=== PATIENT | female | born 1935 | race Caucasian/White ===

== ENCOUNTER 2017-04-08 15:06 | Emergency (ER) | payer MEDICARE, OTHER, SELFPAY | END 2017-04-08 20:42 | disposition home or self-care (01) | PROVIDERS: Emergency Provider Emergency Medicine; Family Provider Nurse Practitioner Family; Visit Provider Emergency Medicine | DX: R07.81 Pleurodynia (principal); R06.02 Shortness of breath; I10 Essential (primary) hypertension; Z79.899 Other long term (current) drug therapy; Z82.49 Family history of ischemic heart disease and other diseases of the circulatory system | CPT/HCPCS: 36415; 71101; 80053; 82550; 82553; 83880; 84436; 84443; 84479; 84484; 85025; 85378; 93005; 96374; 99284 ==

== ENCOUNTER 2017-04-13 07:34 | Emergency (ER) | payer MEDICARE, OTHER, SELFPAY | END 2017-04-13 11:17 | disposition home or self-care (01) | PROVIDERS: Emergency Provider Emergency Medicine; Visit Provider Emergency Medicine | DX: M48.54XA Collapsed vertebra, not elsewhere classified, thoracic region, initial encounter for fracture (principal); Z79.899 Other long term (current) drug therapy; Z82.49 Family history of ischemic heart disease and other diseases of the circulatory system | CPT/HCPCS: 71020; 72128; 78582; 80053; 83605; 83880; 84484; 85025; 85378; 87040; 93005; 96374; 99284; A9540; A9567 ==

== ENCOUNTER → 2017-04-13 | Outpatient (CLI) | payer MEDICARE, OTHER, SELFPAY | PROVIDERS: PCP Nurse Practitioner Family; Visit Provider Emergency Medicine | DX: M48.54XA Collapsed vertebra, not elsewhere classified, thoracic region, initial encounter for fracture (principal) | CPT/HCPCS: 78582; A9540; A9567 ==

== ENCOUNTER → 2017-09-03 11:19 | Outpatient (CLI) | payer MEDICARE, OTHER, SELFPAY ==
--- NOTE | 2017-09-03 11:26 | XR_ITS ---
XR chest 2V HISTORY: ITS.REASON: COUGH ORDERING PHYSICIAN: Mery Curiel PATIENT AGE: 82 years COMPARISON: 04/13/2017 FINDINGS: Prior median sternotomy. Bipolar pacemaker is present from left subclavian approach. There is cardiomegaly without failure. There is been interval development of a small left pleural effusion. Right lung is clear. Severe wedge compression changes involve T8 appear somewhat worse on today's exam. Atelectatic or fibrotic changes are present in the left perihilar region obscured somewhat by the overlying pacemaker. IMPRESSION: 1. Interval development of a small left pleural effusion with left midlung atelectatic change. This is somewhat obscured by the overlying pacemaker. Cannot exclude a central obstructing lesion. CT with contrast may be of further value. 2. Cardiomegaly without failure. 3. Increasing wedge compression changes of T8
== END ==
PROVIDERS: PCP Nurse Practitioner Family; Visit Provider Nurse Practitioner Family
DX: R05 Cough (principal)
CPT/HCPCS: 71046

== ENCOUNTER → 2017-09-25 09:56 | Outpatient (CLI) | payer MEDICARE, OTHER, SELFPAY ==
--- NOTE | 2017-09-25 11:06 | CT_ITS ---
CT chest wo con HISTORY: ITS.REASON: ABNORMAL FINDINGS, PLEURAL FLUID ORDERING PHYSICIAN: Mery Curiel PATIENT AGE: 82 years COMPARISON: 10/19/2014 Technique: Axial images obtained. Sagittal and coronal reformatted images are also generated and reviewed. All CT scans at the facility use one or more dose reduction, viz: automated exposure control; ma/kV adjustment per patient size (including targeted exams where dose is matched to indication; i.e. head); or iterative reconstruction technique. FINDINGS: The right lobe of thyroid gland is enlarged with heterogeneous density with possible thyroid mass may be better evaluated with ultrasound.. There is cardiomegaly. There has been prior median sternotomy/CABG. Cardiac pacemaker device is present. Scattered small nodes present in the mediastinum.. There are some scattered fibrotic changes with a linear transverse area of increased density in the left upper lobe inferiorly consistent with an area of fibrosis similar to the previous exam. Atelectatic/fibrotic changes are present in the left lung base. There is a small left pleural effusion. No lobar consolidation or collapse. No suspicious pulmonary nodules evident. No central obstructing lesions. There is mild distention of the esophagus which is nonspecific. There is severe wedging involving the T8 vertebral body which has developed since the previous CT scan but was present on previous lateral chest radiograph of 04/13/2017. IMPRESSION: 1. Prior CABG with cardiomegaly and small left pleural effusion. 2. Mild left basilar atelectasis or fibrosis. 3. Enlarged lower pole of the right lobe of the thyroid gland with possible thyroid mass. Ultrasound may be of further value.
--- NOTE | 2017-09-25 11:09 | HMH.ITSHM ---
FUROSEMIDE CLOPIDOGREL POTASSIUM METOLAZONE ROPINIROLE
== END ==
PROVIDERS: Family Provider Nurse Practitioner Family; PCP Nurse Practitioner Family; Visit Provider Nurse Practitioner Family
DX: R84 Abnormal findings in specimens from respiratory organs and thorax (principal)
CPT/HCPCS: 71250

== ENCOUNTER 2019-09-26 23:24 | Emergency (ER) | payer MEDICARE, OTHER, SELFPAY ==
[2019-09-26 23:38] VITALS: BP 124/78; PULSE 96; RESP 18; TEMP 36.6; O2SAT 97; BMI 31.2
--- NOTE | 2019-09-26 23:45 | ECG_ITS ---
APPROVED REPORT Exam: Resting ECG HR:93 bpm ECG Measurements Heart Rate 93 AXES PA 272 P 73 QRSd 138 QRS -44 QT 412 T -51 QTc 512 <Conclusion> Sinus rhythm with sinus arrhythmia with 1st degree AV block Left axis deviation Right bundle branch block Inferior infarct, age undetermined Anterolateral infarct, age undetermined Abnormal ECG Electronically signed by : Zia Jimenez, 10/01/2019 17:12:49
--- NOTE | 2019-09-26 23:52 | HMH.EDGENADL ---
ED Disposition Clinical Impression: Hypokalemia Rib contusion Qualifiers: Encounter type: initial encounter Laterality: right Qualified Code(s): S20.211A - Contusion of right front wall of thorax, initial encounter Fall Qualifiers: Encounter type: initial encounter Qualified Code(s): W19.XXXA - Unspecified fall, initial encounter Disposition: Home, Self-Care Condition on Discharge: Good Instructions: DI for Hypokalemia, DI for Rib Contusion, How to Prevent Falls Additional Instructions: Increase your dose of potassium to 3 tablets twice a day until further instructed by your primary care provider. Follow-up with your primary care provider this coming week. You will need to have your potassium level rechecked and will need to review your kidney test results with your primary care provider. Your creatinine and BUN today were 2.9 and 59. Your potassium level was 2.8. Referrals: Mery Curiel APRN [Primary Care Provider] - - Critical Care Critical Care Time: No Attestation: On 09/26/19, the high probability of a clinically significant, sudden or life threatening deterioration of the following system(s) required my full and direct attention, intervention and personal management. The time I documented below is in addition to time spent performing reported procedures but includes the following listed in this critical care notation. Medical Decision Making - Miki Inquiry Pt receiving controlled substance: No Vital Signs: 09/26/19 23:38 09/27/19 01:13 09/27/19 02:29 Temperature 97.9 F 97.9 F Temperature Source Oral Oral Pulse Rate 100 H Pulse Rate [Right] 96 H Respiratory Rate 18 16 Blood Pressure 126/76 Blood Pressure [Right Arm] 124/78 133/82 Blood Pressure Mean [Right Arm] 93 99 Blood Pressure Source [Right Arm] Automatic Cuff Automatic Cuff Blood Pressure Position [Right Arm] Supine Supine 02 Sat by Pulse Oximetry 97 Oxygen Delivery Method Room Air Room Air - Lab Data Lab Results 09/27/19 00:05: Sodium 129 L, Potassium 2.8 L*, Chloride 78 L, Carbon Dioxide 39 H, Anion Gap 14.8, BUN 59 H, Creatinine 2.90 H, Estimated Creat Clear 16, Estimated GFR 15 L*, Est GFR ( Amer) 19 L*, Glucose 207 H, Calcium 10.9 H, Troponin I 0.06 H 09/27/19 00:05: Magnesium 2.5 H Result diagrams: 09/27/19 00:05 Orders (Tests/Meds): ED MEDICATIONS Discontinued Medications Generic Name Dose Route Start Last Admin Trade Name Alistair PRN Reason Stop Dose Admin Potassium Chloride 60 meq 09/27/19 00:39 09/27/19 01:05 Klor-Con 20meq Tablet PO 09/27/19 00:40 60 meq ONCE ONE Administration ORDERS Category Date Time Status XR chest 2V Stat Exams 09/27/19 00:01 Taken XR ribs RT 2V Stat Exams 09/27/19 00:01 Taken - Radiology Data #1 Image(s): Chest (and ribs) Image Reviewed: Yes I reviewed the patient's radiology image Pacemaker. Atelectasis. No acute disease. No pneumothorax or hemothorax. No rib fractures seen. - ECG Data Tracing #1 EKG interpreted by Cong Crump MD: Rhythm: sinus Rate: 93 [place]: Left Ectopy: none Conduction: Right bundle branch block ST Segment Changes: none T Wave Changes: none Q Waves: none No evidence of acute ischemia or injury Prior electrocardiagrams reviewed. No change from prior tracings. Medical Decision Narrative: Discussed lab results. Discussed potassium dosing. The patient says that she is taking the potassium 10 mEq, 2 pills twice a day as prescribed. Daughter is not certain of this. Neither of them know what her normal creatinine is. Her creatinine is elevated compared to the last result here, but that was 2 years ago. She says they have told her that her kidneys are bad, but they do not know her creatinine level. She will need to follow-up with her primary care doctor to have potassium rechecked and review kidney labs. She says she feels good and does not want to be admitted, says she feels good to
--- NOTE | 2019-09-27 00:01 | XR_ITS ---
PROCEDURE: XR RIBS RT 2V CLINICAL INDICATION: fall Posttraumatic pain, right-sided lower rib pain COMPARISON: XR CHEST 2V from 09/27/2019 FINDINGS: Study is somewhat limited technically. No definite fracture. If pain persists, consider CT for further evaluation. IMPRESSION: No acute findings. Dictated by: Florencio Yeager MD 09/27/2019 06:22 Electronically signed by Florencio Yeager MD in [place] 09/27/2019 06:22
--- NOTE | 2019-09-27 00:01 | XR_ITS ---
PROCEDURE: XR CHEST 2V CLINICAL HISTORY: fall Posttraumatic pain COMPARISON: CXR CHEST(2 VIEWS-NOT PORTABLE) from 03/10/2016 CXR CHEST(2 VIEWS-NOT PORTABLE) from 04/13/2017 CXR2V XR chest 2V from 09/03/[address] chest wo con from 09/25/2017 FINDINGS: There is cardiomegaly without failure. Bipolar pacemaker is present from left subclavian approach. There has been a prior CABG The lungs are clear without infiltrates, suspicious nodules, or pleural effusions. There is severe wedging of T8 not significantly changed. Atelectatic changes are present in the left midlung. IMPRESSION: Cardiomegaly, no change with no acute finding Dictated by: Florencio Yeager MD 09/27/2019 06:24 Electronically signed by Florencio Yeager MD in [facility] 09/27/2019 06:24
[2019-09-27 00:22] LABS: Anion Gap 14.8 mEq/L (5-15); Blood Urea Nitrogen 59 mg/dl (7-17); Calcium 10.9 mg/dl (8.4-10.2); Carbon Dioxide 39 mmol/L (22.0-30.0); Creatinine Clearance Estimated 16 mL/min (50-200); Estimated Glomerular Filt Rate 15 ml/min (>60); GFR (African American) 19 ML/MIN (>60); Glucose 207 mg/dl (74-100); Sodium 129 mmol/L (136-145)
[2019-09-27 00:23] LABS: Chloride 78 mmol/L (98-107); Potassium 2.8 mmoL/L (3.5-5.1)
--- NOTE | 2019-09-27 00:24 | PC.NURSE ---
critical K+ called from lab, Dr Crump notified
[2019-09-27 00:34] LABS: Troponin I 0.06 ng/ml (0.00-0.034)
[2019-09-27 00:35] LABS: Magnesium 2.5 mg/dl (1.6-2.3)
--- NOTE | 2019-09-27 01:11 | PC.NURSE ---
Pt spit the last Potassium pill up and was dicarded down the sink, another pill was pulled from the [facility] and pt was able to get that one down. Pt got a full 60 MEQ of potassium down.
[2019-09-27 01:13] VITALS: BP 133/82
[2019-09-27 02:29] VITALS: BP 126/76; PULSE 100; RESP 16; TEMP 36.6; O2SAT 96
== END 2019-09-27 02:32 | disposition home or self-care (01) ==
PROVIDERS: Emergency Provider Emergency Medicine; PCP Nurse Practitioner Family
DX: S20.211A Contusion of right front wall of thorax, initial encounter (principal); W01.0XXA Fall on same level from slipping, tripping and stumbling without subsequent striking against object, initial encounter; Y92.019 Unspecified place in single-family (private) house as the place of occurrence of the external cause; E87.6 Hypokalemia; Z95.0 Presence of cardiac pacemaker; Z79.899 Other long term (current) drug therapy
CPT/HCPCS: 71046; 71100; 80048; 83735; 84484; 93005; 99283; 99284

== ENCOUNTER 2020-02-05 11:15 | Emergency (ER) | payer MEDICARE, OTHER, SELFPAY ==
[2020-02-05 11:16] VITALS: BP 156/103; PULSE 103; RESP 16; TEMP 36.9; O2SAT 98; BMI 26.7
--- NOTE | 2020-02-05 11:34 | CT_ITS ---
PROCEDURE: CT THORACIC SPINE WO CON CLINICAL HISTORY: pain Back pain, pain after bending COMPARISON: CT TSPWO CT THORACIC SPINE W/O CONTRAST from 04/13/[address] chest wo con from 09/25/2017 CR XR CHEST 2V from 09/27/2019 TECHNIQUE: Axial images obtained with sagittal and coronal reformats. All CT scans at the facility use one or more dose reduction, viz: automated exposure control, ma/kV adjustment per patient size (including targeted exams where dose is matched to indication, i.e. head), or iterative reconstruction technique. FINDINGS: There is severe wedge compression changes of T8 with vertebra plana. This was present on 09/27/2019. Moderate wedge compression changes involve the T7 vertebral body with loss of height centrally and anteriorly of at least 50 percent. This also was present on the previous exam and may be slightly worse. There is diffuse osteopenia. There is old cyst left 7th 8th and 9th rib fractures posteriorly. The atelectatic changes are present in the left lower lobe. There is severe coronary artery calcification. The right lobe of the thyroid gland is enlarged with small nodules which are less than 1 cm. At least 3 nodules are present. There is mild retropulsion of the posterior inferior aspect of the T8 vertebral body by 3 mm. There is degenerative disc disease at L1-L2. Degenerative disc disease is also present in the lower cervical spine. IMPRESSION: 1. 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 2. Moderate wedge compression changes of T7 with loss of height of 50 percent anteriorly which is slightly progressed compared to prior lateral radiograph of 09/27/2019. No retropulsion. 3. Diffuse osteopenia Dictated by: Florencio Yeager MD 02/05/2020 12:51 Florencio Yeager MD in [facility] 02/05/2020 12:51
--- NOTE | 2020-02-05 11:38 | HMH.EDGENADL ---
ED Disposition Clinical Impression: Strain of thoracic spine, Osteopenia of spine Disposition: Home, Self-Care Condition on Discharge: Good Instructions: DI for Thoracic Back Pain Prescriptions: Hydrocodone/Acetaminophen [[place] 5-325 Tablet] 1 each PO Q8 #12 tab Prescription Printed Referrals: Armida Montilla APRN [Primary Care Provider] - - Critical Care Critical Care Time: No Attestation: On , the high probability of a clinically significant, sudden or life threatening deterioration of the following system(s) required my full and direct attention, intervention and personal management. The time I documented below is in addition to time spent performing reported procedures but includes the following listed in this critical care notation. Medical Decision Making - Medical Records Medical records reviewed: Yes: I reviewed the patient's medical records. - Miki Inquiry Pt receiving controlled substance: Yes Miki was queried for this patient: No Reason not queried -: Emergent pt cond-no time Risks and benefits of using a controlled substance: were discussed with pt by me Vital Signs: 02/05/20 11:16 02/05/20 12:06 Temperature 98.4 F Temperature Source Oral Pulse Rate [Radial] 103 H 89 Respiratory Rate 16 Blood Pressure [Right Arm] 156/103 H 108/75 L Blood Pressure Mean [Right Arm] 120 86 Blood Pressure Source [Right Arm] Automatic Cuff Blood Pressure Position [Right Arm] Sitting Sitting 02 Sat by Pulse Oximetry 98 100 Oxygen Delivery Method Room Air Room Air Orders (Tests/Meds): ED MEDICATIONS Discontinued Medications Generic Name Dose Route Start Last Admin Trade Name Freq PRN Reason Stop Dose Admin Morphine Sulfate 4 mg 02/05/20 11:34 02/05/20 11:47 Morphine 2mg/Ml Syringe IM 02/05/20 11:35 4 mg ONCE ONE Administration Ondansetron HCl 4 mg 02/05/20 11:34 02/05/20 11:45 Ondansetron 4mg Odt SL 02/05/20 11:35 Not Given ONCE ONE Ondansetron HCl 4 mg 02/05/20 11:47 02/05/20 11:48 Ondansetron 4mg/2ml Vial IV 02/05/20 11:48 4 mg ONCE ONE Administration - CT Data CT Scan: T-Spine Time Received: 13:17 Findings Narrative: 1. 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 2. Moderate wedge compression changes of T7 with loss of height of 50 percent anteriorly which is slightly progressed compared to prior lateral radiograph of 09/27/2019. No retropulsion. 3. Diffuse osteopenia - Reevaluation(s) Time: 13:18 Reevaluation #1: On reevaluation, patient is feeling better. She does have evidence of significant chronic compression fractures. She does have some loss of height. There is no obvious compression or new deformities. Patient has no neuro deficit. Repeat exam is normal. Patient is ambulatory. Patient needs follow-up with PCP. Strict return precautions. Verbalized understanding. Medical Decision Narrative: 84-year-old female presented to the emergency department with upper back pain. Patient did not have any direct trauma. However does have a history of compression fracture. CT will be obtained. Analgesics provided. General Adult HPI - General Chief complaint: PAIN Stated complaint: back pain no ao Time Seen by Provider: 02/05/20 11:20 Mode of Arrival: Ambulatory Limitations: No Limitations Description of Symptoms (Recalled from ER Triage Doc. by RN): TO ED PER [employer] CAR WITH C/O RT SIDE BACK PAIN PT STATES PAIN STARTED LAST SUNDAY WHILE BENDING OVER TO CLEAN THE OVEN. - History of Present Illness HPI narrative: This is a 84-year-old female presented to the emergency department with upper back discomfort. Patient states that 1 week ago she was reaching over her stove to try and clean it where she felt some pain in her back. It is located in her mid upper back. She has had pain like this before and she states that it was compression fracture. T
[2020-02-05 12:06] VITALS: BP 108/75; PULSE 89; O2SAT 100
[2020-02-05 13:33] VITALS: BP 124/87; PULSE 90; RESP 17; TEMP 36.7; O2SAT 99
== END 2020-02-05 13:34 | disposition home or self-care (01) ==
PROVIDERS: Emergency Provider Emergency Medicine; PCP Nurse Practitioner
DX: M54.6 Pain in thoracic spine (principal); M85.89 Other specified disorders of bone density and structure, multiple sites; I10 Essential (primary) hypertension; Z95.0 Presence of cardiac pacemaker; Z79.899 Other long term (current) drug therapy
CPT/HCPCS: 72128; 96374; 96375; 99282; J2405

== ENCOUNTER 2020-03-08 09:59 | Emergency (ER) | payer MEDICARE, OTHER, SELFPAY ==
[2020-03-08 10:10] VITALS: BP 150/76; PULSE 103; RESP 17; TEMP 36.9; O2SAT 100; BMI 27.1
--- NOTE | 2020-03-08 10:20 | CT_ITS ---
PROCEDURE: CT THORACIC SPINE WO CON CLINICAL HISTORY: pain Mid lower back pain for 2 weeks COMPARISON: CT CT THORACIC SPINE WO CON from 02/05/2020 TECHNIQUE: Axial images obtained with sagittal and coronal reformats. All CT scans at the facility use one or more dose reduction, viz: automated exposure control, ma/kV adjustment per patient size (including targeted exams where dose is matched to indication, i.e. head), or iterative reconstruction technique. FINDINGS: There are marked compression fractures once again noted involving T7 and T8 vertebral bodies with vertebra plana at T8. There is at least 50 percent anterior wedge compression changes of T7. No retropulsion is evident. There are mild to moderate compression changes of T9 which have developed in the interval there is increased soft tissue density about T9 consistent with some underlying hemorrhage. No retropulsion is evident. No change mild compression changes of T12 there is diffuse osteopenia with mild multilevel thoracic spondylosis. There is diffuse coronary artery calcification. Cardiac pacemaker device is present. IMPRESSION: Moderate compression of T9 vertebral body slightly increased compared to the previous exam with some paraspinal hemorrhage noted No change marked compression fractures of T7 and T8 and mild compression change of T12 Dictated by: Florencio Yeager MD 03/08/2020 12:31 Florencio Yeager MD in [facility] 03/08/2020 12:31
--- NOTE | 2020-03-08 10:20 | CT_ITS ---
PROCEDURE: CT LUMBAR SPINE WO CON CLINICAL HISTORY: pain Low back pain COMPARISON: No exams were available for comparison TECHNIQUE: Axial images obtained with sagittal and coronal reformats. All CT scans at the facility use one or more dose reduction, viz: automated exposure control, ma/kV adjustment per patient size (including targeted exams where dose is matched to indication, i.e. head), or iterative reconstruction technique. FINDINGS: No acute lumbar fracture or dislocation. L1-L2: Degenerative disc disease with bulging disc and endplate irregularity. L2-L3: Mild degenerative disc disease with mild bulging disc. L3-L4: Unremarkable. L4-5: Mild bulging disc. L5-S1: Degenerative disc disease with mild bulging disc/endplate hypertrophic change with mild left-sided foraminal narrowing. There is generalized osteopenia. There is a small hiatal hernia IMPRESSION: Mild multilevel lumbar spondylosis. Please see above for detailed description at each level No acute fracture or dislocation Dictated by: Florencio Yeager MD 03/08/2020 12:34 Florencio Yeager MD in [facility] 03/08/2020 12:34
--- NOTE | 2020-03-08 10:27 | HMH.EDBACK ---
ED Disposition Clinical Impression: Thoracic compression fracture Qualifiers: Encounter type: initial encounter Thoracic vertebra fracture level: T9 Qualified Code(s): S22.070A - Wedge compression fracture of T9-T10 vertebra, initial encounter for closed fracture Disposition: Home, Self-Care Condition on Discharge: Good Instructions: DI for Low Back Pain Prescriptions: Hydrocodone/Acetaminophen [[place] 7.5-325 Tablet] 1 tab PO TID PRN #10 tab PRN Reason: Moderate Pain Prescription Printed Referrals: Zia Jimenez MD [Primary Care Provider] - Bari Pittman [Referring] - - Critical Care Critical Care Time: No Attestation: On 03/08/20, the high probability of a clinically significant, sudden or life threatening deterioration of the following system(s) required my full and direct attention, intervention and personal management. The time I documented below is in addition to time spent performing reported procedures but includes the following listed in this critical care notation. Medical Decision Making - Medical Records Medical records reviewed: Yes: I reviewed the patient's medical records. - Miki Inquiry Pt receiving controlled substance: Yes Miki was queried for this patient: No Reason not queried -: Emergent pt cond-no time Risks and benefits of using a controlled substance: were discussed with pt by me Vital Signs: 03/08/20 10:10 03/08/20 10:59 Temperature 98.5 F Temperature Source Oral Pulse Rate [Right Radial] 103 H 89 Respiratory Rate 17 20 Blood Pressure [Right Arm] 150/76 H 139/85 Blood Pressure Mean [Right Arm] 100 103 Blood Pressure Source [Right Arm] Automatic Cuff Blood Pressure Position [Right Arm] Sitting 02 Sat by Pulse Oximetry 100 98 Oxygen Delivery Method Room Air Room Air Orders (Tests/Meds): ED MEDICATIONS Discontinued Medications Generic Name Dose Route Start Last Admin Trade Name Freq PRN Reason Stop Dose Admin Hydrocodone Bitart/Acetaminophen 1 tab 03/08/20 10:19 03/08/20 10:28 Hydrocodone 10mg/Apap 325mg Tab PO 03/08/20 10:20 1 tab ONCE ONE Administration ORDERS Category Date Time Status CT lumbar spine wo con Stat Cat Scan 03/08/20 10:[address] thoracic spine wo con Stat Cat Scan 03/08/20 10:20 Taken - CT Data CT Scan: T-Spine, L-Spine Time Received: 11:[address] Reviewed: Yes: I have reviewed the patient's CT results Findings Narrative: 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 Thoracic spine shows moderate compression T9 vertebral body fracture he with somewhat increasing compression. Large compression of T7, T8 vertebral bodies without significant change from previous examination. Mild compression of T12 vertebral body. - Reevaluation(s) Time: 11:28 Reevaluation #1: On reevaluation, patient is feeling better. She does have redemonstrated thoracic compression fractures. I did explain to the patient that she needs to follow-up with neurosurgery. The patient and family member are reluctant as they said the patient cannot tolerate any surgery. I did explain to them that they can still facilitate with physical therapy and other nonsurgical treatments. I will be prescribing the patient for a custom TLSO back brace that they will need to get fitted for. Patient will be provided analgesics. Given strict return precautions. Verbalized understanding. Medical Decision Narrative: 84-year-old female presented to the emergency department with chronic thoracic compression fractures. Patient has not followed up with neurosurgery since last evaluation. Repeat imaging will be obtained. Back Pain HPI - General Chief Complaint: Back Pain/Injury Stated Complaint: back pain Time Seen by Provider: 03/08/20 10:20 Mode of Arrival: Wheelchair Limitations: No Limitations Description of Symptoms (Recalled from ER Triage Doc. by RN): pt presents to ed with c/o back pain that began approx 1 mon
[2020-03-08 10:59] VITALS: BP 139/85; PULSE 89; RESP 20; O2SAT 98
[2020-03-08 11:43] VITALS: BP 133/80; PULSE 88; RESP 20; TEMP 36.7; O2SAT 99
== END 2020-03-08 11:44 | disposition home or self-care (01) ==
PROVIDERS: Emergency Provider Emergency Medicine; PCP Internal Medicine Adolescent Medicine
DX: S22.070A Wedge compression fracture of T9-T10 vertebra, initial encounter for closed fracture (principal); S22.060A Wedge compression fracture of T7-T8 vertebra, initial encounter for closed fracture; I25.10 Atherosclerotic heart disease of native coronary artery without angina pectoris; I10 Essential (primary) hypertension; Z95.0 Presence of cardiac pacemaker; Z79.899 Other long term (current) drug therapy
CPT/HCPCS: 72128; 72131; 96372; 99282

== ENCOUNTER → 2020-03-22 14:39 | Outpatient (POV) | payer MEDICARE, OTHER, SELFPAY ==
[2020-03-22 15:06] VITALS: BP 121/67; PULSE 96; RESP 18; TEMP 36.7; O2SAT 98; BMI 26.4
--- NOTE | 2020-03-22 15:51 | HMH.PMCON ---
Assessment and Plan (1) Back pain Status: Chronic Category: Medical Code(s): M54.9 - Dorsalgia, unspecified (2) Thoracic compression fracture Status: Chronic Category: Medical Code(s): S22.000A - Wedge compression fracture of unspecified thoracic vertebra, initial encounter for closed fracture - Assessment and plan all Dx Assessment and Plan for all problems:: Patient has not received her back brace yet I do believe that this would benefit her if she does not receive this in several days she has been instructed to call the office to get a back brace from our office. I discussed kyphoplasty along with epidurals she would like to try bracing prior to making any decision. I will follow-up with her in 2 weeks reassess her symptoms at that time she has been instructed to call the office if she has any issues prior to her next appointment. Dr. Wakefield has reviewed this note and agrees with this plan of care. This note was dictated using voice recognition software and may contain errors or omissions HPI - Data of Consult Consult date: 03/22/20 Requesting Physician: More Salinas APRN Primary Care Provider: Vicki Grant APRN - Consult Narrative Reason for consult: Back pain History of present illness: Ms. Medellin is a 84 year old female who presents today for consultation regards to her low back pain. Patient has multiple compression fractures of her T-spine. She has had this over the last 3 years. Most recently she had a new fracture appear. She was at the ER and given a prescription for a back brace but has not received it yet she states she has no pain when she is sitting still she rates her pain a 7 out of 10. She does have pain with movement. Patient also is currently on anticoagulation therapy. Patient and I will discuss options in regards to her pain management. CC: More Salinas APRN [facility] History I have reviewed the patient's past medical history: Yes Medical History: Reports:: Coronary Artery Disease, Hypertension, Internal Pacemaker Denies:: Cancer, Diabetes Mellitus Type 1, Diabetes Mellitus Type 2, MRSA *Have you ever received a pneumonia vaccine?: No *Have you received a flu vaccine this season?: No Other Surgeries: Yes: CABG, Cardiac Catheterization, Coronary Stent, Hysterectomy-Total, Pacemaker Amputation: No Fractures: No - *Social History Smoking Status: Never smoker Alcohol Intake: never Substance Use Type: denies use *Occupational Status:: retired Housing: house Household Members: family *Travel in the last 8 weeks: None Family Hx:: Coronary Artery Disease, Heart Attack Review of Systems - Review of Systems ROS General: no recent weight change, no fever, no sleep disturbances Respiratory: no cough, no shortness of air, no recurring pulmonary infections Cardiovascular/Peripheral Vascular: No chest pain, No palpitations, no edema, no shortness of breath. Gastrointestinal: no new onset incontinence, normal bowel movements reported Genitourinary: no new onset incontinence Musculoskeletal: Back pain Psychiatric: normal mood/ affect, Neurological: [denies new onset weakness in extremities], [denies new onset balance issues] Meds Home Medications Medication Instructions Recorded Confirmed Type clopidogrel 75 mg tablet 75 mg PO DAILY tab 01/05/20 03/22/20 History furosemide 40 mg tablet 40 mg PO BID tab 01/05/20 03/22/20 History metolazone 2.5 mg tablet 2.5 mg PO .twice weekly tab 01/05/20 03/22/20 History potassium chloride 10 mEq 20 meq PO BID tab 01/05/20 03/22/20 History tablet,extended release ropinirole 3 mg tablet 3 mg PO QHS tab 01/05/20 03/22/20 History Allergies Allergy/AdvReac Type Severity Reaction Status Date / Time No Known Allergies Allergy Verified 03/22/20 15:06 Objective Vital signs: Temp Pulse Resp BP Pulse Ox 98.1 F 96 H 18 121/67 98 03/22/20 15:06 03/22/20 15:06 03/22/20 15:06 03/22/20 15:06
== END ==
PROVIDERS: PCP Nurse Practitioner Family; Visit Provider Clinical Nurse Specialist Family Health
DX: S22.000A Wedge compression fracture of unspecified thoracic vertebra, initial encounter for closed fracture (principal)
CPT/HCPCS: 99202

== ENCOUNTER → 2021-02-08 10:25 | Outpatient (CLI) | payer MEDICARE, OTHER, SELFPAY | PROVIDERS: PCP Nurse Practitioner Family; Visit Provider Nurse Practitioner Family | DX: R06.02 Shortness of breath (principal) ==

== ENCOUNTER → 2021-02-24 11:23 | Outpatient (CLI) | payer MEDICARE, OTHER, SELFPAY ==
[2021-02-24 12:29] LABS: Alanine Aminotransferase 15 U/L (12-78); Albumin Level 4.4 g/dl (3.5-5.0); Albumin/Globulin Ratio 1.5 (1.1-1.8); Alkaline Phosphatase 83 U/L (38-126); Aspartate Amino Transferase 28 U/L (14-36); Bilirubin,Total 0.8 mg/dl (0.2-1.3); Blood Urea Nitrogen 36 mg/dl (7-17); Calcium 11.1 mg/dl (8.4-10.2); Carbon Dioxide 33 mmol/L (22.0-30.0); Chloride 100 mmol/L (98-107); Estimated Glomerular Filt Rate 33 ml/min (>60); GFR (African American) 40 ML/MIN (>60); Globulin 2.9 g/dL (1.3-3.2); Glucose 115 mg/dl (74-100); Sodium 141 mmol/L (136-145); Total Protein,Serum 7.3 g/dl (6.3-8.2)
[2021-02-24 16:24] LABS: Hemoglobin A1C 6.6 % (4.0-6.0)
== END ==
PROVIDERS: Visit Provider Nurse Practitioner Family
DX: R73.9 Hyperglycemia, unspecified (principal)
CPT/HCPCS: 36415; 80053; 83036

== ENCOUNTER 2021-06-08 15:48 | Inpatient (IN) | payer MEDICARE, OTHER, SELFPAY ==
[2021-06-08] VITALS (9 sets, daily range): BP systolic 112–178; BP diastolic 75–125; PULSE 95–128; RESP 12–36; TEMP 36.9; O2SAT 73–98; BMI 26.2; BMI 26.7
--- NOTE | 2021-06-08 16:10 | XR_ITS ---
PROCEDURE INFORMATION: Exam: XR Chest Exam date and time: 06/08/2021 4:10 PM Age: 86 years old Clinical indication: Shortness of breath; Additional info: Pna TECHNIQUE: Imaging protocol: XR of the chest. Views: 1 view. Total images: 1 COMPARISON: CT ANGIO CHEST PE PROTOCOL 06/08/2021 5:03 PM FINDINGS: Lungs: Low lung volumes. Moderate central vascular congestion. Multifocal bilateral perihilar and basilar alveolar opacities consistent with multifocal pneumonia versus edema. Pleural spaces: Small to moderate left basilar pleural effusion. The small right basilar pleural effusion seen on CT is not well seen radiographically. No pneumothorax. Heart/Mediastinum: Severe cardiomegaly. Prior median sternotomy.Cardiac pacemaker without gross hardware complication or change. No tracheal/mediastinal shift. Bones/joints: No acute osseous abnormalities are identified. Osteopenia. IMPRESSION: 1. Cardiomegaly and vascular congestive changes suggesting CHF. 2. Multifocal bilateral alveolar opacities consistent with pneumonia or edema. 3. Small to moderate left basilar effusion.
--- NOTE | 2021-06-08 16:16 | CT_ITS ---
PROCEDURE INFORMATION: Exam: CTA Chest With Contrast Exam date and time: 06/08/2021 4:16 PM Age: 86 years old Clinical indication: Shortness of breath; Prior surgery; Additional info: SOB, tachycardia TECHNIQUE: Imaging protocol: Computed tomographic angiography of the chest with contrast. 3D rendering (Not supervised by radiologist): MIP and/or 3D reconstructed images were created by the technologist. Total images: 658 Radiation optimization: All CT scans at this facility use at least one of these dose optimization techniques: automated exposure control; mA and/or kV adjustment per patient size (includes targeted exams where dose is matched to clinical indication); or iterative reconstruction. Contrast material: ISOVUE 370; Contrast volume: 100 ml; Contrast route: INTRAVENOUS (IV); COMPARISON: CHESTWO CT chest wo con 09/25/2017 11:05 AM FINDINGS: Pulmonary arteries: No large central pulmonary emboli were identified. Assessment of the small peripheral subsegmental branches at multiple levels was nondiagnostic due to gross respiratory motion. Aorta: Limited aortic assessment due to its largely nonenhanced state due to very early contrast phase. Moderate aortic ectasia/tortuosity and calcific atherosclerosis. No mediastinal hematoma. Thyroid: 2.4 cm nodule in the posterior right thyroid lobe grossly unchanged from CT 09/25/2017. Nonemergent thyroid ultrasound characterization recommended if not previously performed. Lungs: No acute tracheobronchial abnormalities. Multifocal bilateral peripheral and central alveolar opacities involving all lobes, concerning for multifocal pneumonia or possibly an atypical edema pattern. Commonly reported imaging features of COVID-19 pneumonia are present. Other processes such as influenza pneumonia and organizing pneumonia, as can be seen with drug toxicity and connective tissue disease, can cause a similar imaging pattern. No pulmonary mass lesions are identified. Small to moderate left and small right basilar pleural effusions. Moderate compressive atelectasis in the left lung base. Pleural spaces: No pneumothorax. Heart: No pericardial effusion. Mediastinal space: Fluid content in the esophagus suggests gastroesophageal reflux. The esophagus was otherwise unremarkable. Lymph nodes: No supraclavicular or axillary adenopathy. Enlarged mediastinal nodes in the pretracheal retrocaval and subcarinal distributions with enlarged right hilar nodes. These are nonspecific. Bones/joints: Osteopenia. Severe chronic anterior wedge compression deformity of T8 unchanged. Moderate superior endplate compression of T7 is also unchanged. There is moderate-severe compression deformity of the T9 vertebrae , increased since 03/08/2020 but demonstrates age indeterminate features currently and may be chronic. Moderate superior endplate compression of T12 and mild superior endplate compression of L1 are new since 03/08/2020 but demonstrate chronic features currently. Soft tissues: Mild soft tissue stranding/edema in the peripheral subcutaneous tissues suggesting volume overload or anasarca. Other findings: Severe cardiomegaly.Severe coronary artery calcification. Prior median sternotomy.Cardiac pacemaker without gross hardware complication or change. IMPRESSION: 1. No large central pulmonary emboli were identified. Assessment of the small peripheral subsegmental branches at multiple levels was nondiagnostic due to gross respiratory motion. 2. Multifocal bilateral alveolar opacities concerning for multifocal pneumonia versus atypical edema pattern. 3. Severe cardiomegaly with severe coronary artery calcification, c
--- NOTE | 2021-06-08 16:19 | CT_ITS ---
PROCEDURE INFORMATION: Exam: CT Abdomen And Pelvis With Contrast Exam date and time: 06/08/2021 4:19 PM Age: 86 years old Clinical indication: Abdominal pain; Generalized TECHNIQUE: Imaging protocol: Computed tomography of the abdomen and pelvis with contrast. Total images: 708 Radiation optimization: All CT scans at this facility use at least one of these dose optimization techniques: automated exposure control; mA and/or kV adjustment per patient size (includes targeted exams where dose is matched to clinical indication); or iterative reconstruction. Contrast material: ISOVUE; Contrast volume: 100 ml; Contrast route: IV; COMPARISON: CT THORACIC SPINE WO CON 03/08/2020 10:39 AM FINDINGS: Lungs: Multifocal alveolar opacities in the lung bases bilaterally concerning for multifocal pneumonia possibly an atypical edema pattern. Small to moderate left and small right basilar pleural effusions, with compressive atelectasis in the posterior left lower lobe. Heart: Severe cardiomegaly. Prior median sternotomy.Severe coronary artery calcification.Cardiac pacemaker without gross hardware complication or change. Mediastinal space: Partial fluid distension of the distal esophagus suggesting gastroesophageal reflux. Liver: Normal contour. No mass lesions. No intrahepatic biliary ductal dilatation. Gallbladder and bile ducts: Suspect small noncalcified stones layering dependently in the gallbladder lumen without gross signs of cholecystitis. Nondilated bile ducts. Pancreas: Normal. No inflammatory changes or ductal dilation. Spleen: Normal. No splenomegaly. Adrenal glands: Normal. No adrenal mass. Kidneys and ureters: No acute abnormalities. No hydronephrosis or hydroureter. No urinary tract stones are identified. Renal assessment limited by motion artifact. Stomach and bowel: The stomach is largely contracted without gross abnormality. The small bowel is nondilated with no gross abnormality. Colonic wall thickening involving the mid and proximal colonic segments suggesting colitis. No evidence of perforation or abscess.Mild diverticulosis involving the distal colon without evidence of acute diverticulitis. Appendix: The appendix is normal in caliber and demonstrates no evidence of appendicitis. Intraperitoneal space: Small volume intraperitoneal free fluid in the pelvis. No free air. Vasculature: Moderate atherosclerotic aortoiliac calcification without aneurysm. Lymph nodes: No adenopathy. Urinary bladder: Unremarkable as visualized. Reproductive: Prior hysterectomy. Bones/joints: Moderate superior endplate compression deformity of T12 and mild superior endplate compression of L1 which are new since 03/08/[address] features currently. Osteopenia. Moderate-severe disc space narrowing L5-S1. Soft tissues: Small fatty umbilical hernia . No evidence of associated bowel herniation or strangulation. IMPRESSION: 1. Colonic wall thickening in the mid and proximal segments suggesting colitis. No evidence of perforation or abscess. 2. Multifocal airspace disease in the lung bases concerning for multifocal pneumonia versus an atypical edema pattern. 3. Small to moderate left and small right basilar pleural effusions. 4. Severe cardiomegaly and severe coronary artery calcification with cardiac pacemaker and prior median sternotomy. 5. Evidence of gastroesophageal reflux. 6. Small gallstones without CT evidence of cholecystitis or biliary obstruction. 7. Small volume intraperitoneal fluid in the pelvis. No free air. 8. Compression fractures of T12 and L1 are new since 03/08/[address] features [email or web address]
--- NOTE | 2021-06-08 16:22 | HMH.EDGENADL ---
ED Disposition Clinical Impression: COVID Disposition: Admitted As Inpatient Condition on Discharge: Serious - Critical Care Critical Care Time: No Attestation: On 06/08/21, the high probability of a clinically significant, sudden or life threatening deterioration of the following system(s) required my full and direct attention, intervention and personal management. The time I documented below is in addition to time spent performing reported procedures but includes the following listed in this critical care notation. Medical Decision Making - Miki Inquiry Pt receiving controlled substance: No Vital Signs: 06/08/21 15:49 06/08/21 16:30 06/08/21 17:01 Temperature 98.5 F Temperature Source Oral Pulse Rate 115 H 101 H Pulse Rate [Left Radial] 128 H Respiratory Rate 28 H 36 H 32 H Blood Pressure 125/84 112/77 Blood Pressure [Right Arm] 149/98 H Blood Pressure Mean 97 88 Blood Pressure Mean [Right Arm] 115 Blood Pressure Source [Right Arm] Automatic Cuff Blood Pressure Position [Right Arm] Sitting 02 Sat by Pulse Oximetry 73 L 94 L 94 L Oxygen Delivery Method Room Air Oxygen Flow Rate (LPM) 5 5 06/08/21 18:01 06/08/21 18:30 06/08/21 19:23 Temperature Temperature Source Pulse Rate 108 H 121 H 117 H Pulse Rate [Left Radial] Respiratory Rate 34 H 36 H Blood Pressure 178/105 H 141/125 H Blood Pressure [Right Arm] Blood Pressure Mean 128 127 Blood Pressure Mean [Right Arm] Blood Pressure Source [Right Arm] Blood Pressure Position [Right Arm] 02 Sat by Pulse Oximetry 95 96 Oxygen Delivery Method Oxygen Flow Rate (LPM) 06/08/21 19:26 06/08/21 20:17 Temperature 98.5 F Temperature Source Pulse Rate 95 H Pulse Rate [Left Radial] Respiratory Rate 28 H Blood Pressure 122/75 Blood Pressure [Right Arm] Blood Pressure Mean Blood Pressure Mean [Right Arm] Blood Pressure Source [Right Arm] Blood Pressure Position [Right Arm] 02 Sat by Pulse Oximetry 98 Oxygen Delivery Method BiPAP BiPAP Oxygen Flow Rate (LPM) - Lab Data Lab Results 06/08/21 16:09: Specimen Source Right brachial, O2 % 5l, ABG pH 7.45, ABG pCO2 30.6 L, ABG pO2 65.1 L, ABG HCO3 20.9 L, ABG Total CO2 21.9 L, ABG O2 Saturation 93, ABG Base Excess -3.0 L, Florencio Test Non applicable 06/08/21 16:20: Lactate 2.9 H 06/08/21 16:20: Chlamy pneumoniae PCR Not detected, Adenovirus (PCR) Not detected, B. pertussis DNA (PCR) Not detected, Coronavirus OC43 (PCR) Not detected, Coronavirus HKU1 (PCR) Not detected, Coronavirus 229E (PCR) Not detected, Coronavirus NL63 (PCR) Not detected, Human Metapneumovir PCR Not detected, Influenza A (H1) PCR Not detected, Influ A (H1N1/09) PCR Not detected, Influenza A (H3) PCR Not detected, Influenza Type A (PCR) Not detected, Influenza Type B (PCR) Not detected, M. pneumoniae (PCR) Not detected, Parainfluenza 1 (PCR) Not detected, Parainfluenza 2 (PCR) Not detected, Parainfluenza 3 (PCR) Not detected, Parainfluenza 4 (PCR) Not detected, RSV (PCR) Not detected, Entero/Rhino (PCR) Not detected 06/08/21 16:20: WBC 3.5 L, RBC 4.63, Hgb 15.0, Hct 47.2 H, MCV 102.0 H, MCH 32.3 H, MCHC 31.7 L, RDW 13.7, Plt Count 134 L, MPV 10.1, Neut % (Auto) 90.1 H, Lymph % (Auto) 5.1 L, [place] % (Auto) 3.9, Eos % (Auto) 0.3, Baso % (Auto) 0.6, Neut # (Auto) 3.1, Lymph # (Auto) 0.2 L, [place] # (Auto) 0.1, Eos # (Auto) 0.0, Baso # (Auto) 0.0, Total Counted 100, Neutrophils % (Manual) 73, Lymphocytes % (Manual) 15, Monocytes % (Manual) 12 H, Platelet Estimate Normal, Hypochromasia 2+, Anisocytosis 1+, Microcytosis 1+ 06/08/21 16:20: Sodium 130 L, Potassium 5.8 H, Chloride 96 L, Carbon Dioxide 22, Anion Gap 17.8 H, BUN 60 H, Creatinine 1.90 H, Estimated Creat Clear 20, Estimated GFR 25 L, Est GFR ( Amer) 30 L, Glucose 268 H, Calcium 9.3, Total Bilirubin 0.6, AST 60 H, ALT 31, Alkaline Phosphatase 88, Troponin I 0.08 H, Total Protein 7.2, Albumin 4.1, Globulin 3.1, Albumin/Globulin Ratio 1.
[2021-06-08 16:28] LABS: Adenovirus,PCR Not Detected (NotDetected); Bordetella Pertussis Not Detected (NotDetected); Chlamydophila Pneumoniae, PCR Not Detected (NotDetected); Coronavirus 229E Not Detected (NotDetected); Coronavirus NL63 Not Detected (NotDetected); Coronavirus OC43 Not Detected (NotDetected); Coronovirus HKU1,PCR Not Detected (NotDetected); Human Metapneumovirus Not Detected (NotDetected); Influenza A, PCR Not Detected (NotDetected); Influenza AH1, 2009 Not Detected (NotDetected); Influenza AH1, PCR Not Detected (NotDetected); Influenza AH3,PCR Not Detected (NotDetected); Influenza B, PCR Not Detected (NotDetected); Mycoplasma Pneumoniae, PCR Not Detected (NotDetected); Parainfluenza 1, PCR Not Detected (NotDetected); Parainfluenza 2, PCR Not Detected (NotDetected); Parainfluenza 3, PCR Not Detected (NotDetected); Parainfluenza 4, PCR Not Detected (NotDetected); Respiratory Syncytial Virus Not Detected (NotDetected); Rhinovirus/Enterovirus Not Detected (NotDetected)
--- NOTE | 2021-06-08 16:30 | ECG_ITS ---
APPROVED REPORT Exam: Resting ECG HR:122 bpm ECG Measurements Heart Rate 122 AXES QRSd 149 QRS -72 QT 338 T 53 QTc 410 Conclusion ATRIAL FIBRILLATION WITH RAPID VENTRICULAR RESPONSE RIGHT BUNDLE BRANCH BLOCK Old inf and anterior change ABNORMAL ECG UNCONFIRMED REPORT Electronically signed by : Zia Jimenez MD 06/08/2021 21:52:46
--- NOTE | 2021-06-08 16:32 | PC.NURSE ---
notified RT of abg order
--- NOTE | 2021-06-08 16:34 | PC.NURSE ---
notified rad of orders on pt, spoke with johnnie
[2021-06-08 16:44] LABS: Alanine Aminotransferase 31 U/L (12-78); Albumin Level 4.1 g/dl (3.5-5.0); Albumin/Globulin Ratio 1.3 (1.1-1.8); Alkaline Phosphatase 88 U/L (38-126); Anion Gap 17.8 mEq/L (5-15); Aspartate Amino Transferase 60 U/L (14-36); Bilirubin,Total 0.6 mg/dl (0.2-1.3); Blood Urea Nitrogen 60 mg/dl (7-17); Calcium 9.3 mg/dl (8.4-10.2); Carbon Dioxide 22 mmol/L (22.0-30.0); Chloride 96 mmol/L (98-107); Creatinine Clearance Estimated 20 mL/min (50-200); Estimated Glomerular Filt Rate 25 ml/min (>60); GFR (African American) 30 ML/MIN (>60); Globulin 3.1 g/dL (1.3-3.2); Glucose 268 mg/dl (74-100); Potassium 5.8 mmoL/L (3.5-5.1); Sodium 130 mmol/L (136-145); Total Protein,Serum 7.2 g/dl (6.3-8.2)
[2021-06-08 16:45] LABS: Basophils % 0.6 % (0.1-2.0); Eosinophils % 0.3 % (0.1-12.0); Hematocrit 47.2 % (37.0-47.0); Lactic Acid 2.9 mmol/L (0.7-2.1); Lymphocytes # 0.2 K/mm3 (0.7-4.5); Lymphocytes % 5.1 % (10-50); Mean Corpuscular HGB Conc 31.7 g/dL (31.8-35.4); Mean Corpuscular Hemoglobin 32.3 pg (27.0-31.2); Mean Platelet Volume 10.1 fl (7.4-10.4); Monocytes # 0.1 K/mm3 (0.1-1.0); Monocytes % 3.9 % (1.7-9.3); Neutrophils # 3.1 K/mm3 (1.8-7.8); Neutrophils % 90.1 % (37.0-80.0); Platelet Count 134 K/mm3 (142-424); Red Blood Count 4.63 M/mm3 (4.20-5.40); Red Cell Distribution Width 13.7 % (11.5-17.5); White Blood Count 3.5 K/mm3 (4.8-10.8)
[2021-06-08 16:53] LABS: MANUAL DIFFERENTIAL MANUAL DIFFERENTIAL (MANUAL DIFF)
[2021-06-08 16:54] LABS: NT Pro Brain Natriuretic Pep. 21700 pg/mL (0-450)
[2021-06-08 16:56] LABS: Troponin I 0.08 ng/ml (0.00-0.034)
[2021-06-08 17:10] LABS: ABG HCO3 20.9 mmhg (22.0-26.0); ABG Oxygen Saturation 93 % (90-100); ABG PCO2 30.6 mmhg (35.0-45.0); ABG PH 7.45 mmol/L (7.35-7.45); ABG PO2 65.1 mmhg (80-100); ABG TCO2 21.9 mmhg (23-27)
[2021-06-08 17:11] LABS: Allen's Test Non Applicable; Source Right Brachial
--- NOTE | 2021-06-08 17:38 | PC.NURSE ---
talked to ER doc about poor patient labs...he decided he still wanted the CT's done even though labs were poor. Had ER doc sign CT contrast form saying it was okay to proceed with CT's.
[2021-06-08 18:01] LABS: Influenza A, PCR Not Detected (NotDetected); Influenza B, PCR Not Detected (NotDetected)
[2021-06-08 18:19] LABS: Lymphocytes % 15 % (10-50); Monocytes % 12 % (2-9); Neutrophils % 73 % (42-76); Total Cells Counted 100
[2021-06-08 18:20] LABS: Anisocytosis 1+; Hypochromasia 2+; Microcytosis 1+; Platelet Estimate Normal
[2021-06-08 18:31] LABS: Coronavirus 19, PCR Detected (NotDetected)
--- NOTE | 2021-06-08 18:50 | PC.NURSE ---
gang bore operator paging dr. shin RT notified of verbal order for bipap per ER MD
--- NOTE | 2021-06-08 18:55 | PC.NURSE ---
RAYNE STARKEY speaking with dr. shin
--- NOTE | 2021-06-08 18:58 | PC.NURSE ---
Resp at bedside
--- NOTE | 2021-06-08 19:00 | PC.NURSE ---
notified greenhouse specialist of admission
--- NOTE | 2021-06-08 19:00 | PC.NURSE ---
RT at BS
--- NOTE | 2021-06-08 19:15 | PC.NURSE ---
bipap settings: 27/11 rate of 12 fio2 40%
[2021-06-08 19:24] LABS: NT Pro Brain Natriuretic Pep. 24700 pg/mL (0-450)
--- NOTE | 2021-06-08 20:00 | PC.NURSE ---
Verified with ER about pt triggering sepsis due to previous pna. No antibiotics at this time.
--- NOTE | 2021-06-08 20:23 | PC.NURSE ---
patient up to floor via stretcher @ this time.
[2021-06-08 20:27] LABS: Reflex Lactic Add Lactic Reflex
[2021-06-08 20:33] LABS: Troponin I 0.11 ng/ml (0.00-0.034)
[2021-06-08 21:06] LABS: Lactic Acid Follow Up (RFLX 1) 1.3 mmol/L (0.7-2.1)
[2021-06-08 23:17] LABS: Troponin I 0.11 ng/ml (0.00-0.034)
--- NOTE | 2021-06-08 23:57 | PC.NURSE ---
Consulted MD Jimenez due to pt triggering sepsis due to priorly on PO antibiotics for PNA. No new orders.
[2021-06-09] VITALS (13 sets, daily range): BP systolic 97–137; BP diastolic 64–100; PULSE 70–102; RESP 12–24; TEMP 36.3–36.9; O2SAT 91–100; BMI 26.7
[2021-06-09 05:51] LABS: Basophils % 0.3 % (0.1-2.0); Eosinophils % 0.1 % (0.1-12.0); Hematocrit 41.4 % (37.0-47.0); Hemoglobin 13.8 g/dL (12.2-16.2); Lymphocytes # 0.2 K/mm3 (0.7-4.5); Mean Corpuscular HGB Conc 33.4 g/dL (31.8-35.4); Mean Corpuscular Hemoglobin 33.1 pg (27.0-31.2); Mean Corpuscular Volume 99.1 fl (81-99); Mean Platelet Volume 9.3 fl (7.4-10.4); Monocytes # 0.1 K/mm3 (0.1-1.0); Monocytes % 8.3 % (1.7-9.3); Neutrophils % 77.3 % (37.0-80.0); Platelet Count 87 K/mm3 (142-424); Red Blood Count 4.18 M/mm3 (4.20-5.40); Red Cell Distribution Width 13.1 % (11.5-17.5); White Blood Count 1.3 K/mm3 (4.8-10.8)
[2021-06-09 05:59] LABS: Chloride 97 mmol/L (98-107); Potassium 5.1 mmoL/L (3.5-5.1); Sodium 129 mmol/L (136-145)
[2021-06-09 06:02] LABS: Anion Gap 12.1 mEq/L (5-15); Blood Urea Nitrogen 59 mg/dl (7-17); Calcium 8.5 mg/dl (8.4-10.2); Carbon Dioxide 25 mmol/L (22.0-30.0); Creatinine Clearance Estimated 23 mL/min (50-200); Estimated Glomerular Filt Rate 28 ml/min (>60); GFR (African American) 34 ML/MIN (>60); Glucose 176 mg/dl (74-100)
--- NOTE | 2021-06-09 07:30 | HMH.PHAVTE ---
[facility] Pharmacy VTE Monitoring - Patient Demographics Admission date: 06/08/21 Report Date: 06/09/21 Time: 07:31 Allergies/Adverse Reactions: Patient Allergies No Known Allergies Allergy (Verified 01/31/21 09:37) Height: 1.52 m Weight: 61.87 kg Patient Problems: Current Active Problems COVID (Acute) - VTE Risk Labs: VTE Related Lab Results Hgb 13.8 g/dL (12.2-16.2) 06/09/21 05:31 Hct 41.4 % (37.0-47.0) 06/09/21 05:31 Plt Count 87 K/mm3 (142-424) L D 06/09/21 05:31 BUN 59 mg/dl (7-17) H 06/09/21 05:31 Creatinine 1.70 mg/dl (0.52-1.04) H 06/09/21 05:31 Estimated Creat Clear 23 mL/min (50-200) 06/09/21 05:31 - Prophylaxis VTE Prophylaxis Ordered?: Yes Types of VTE Prophylaxis: TEDS Knee High Location of Applied Device: Bilateral Lower Extremeties
--- NOTE | 2021-06-09 08:58 | HMH.HP ---
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 She had been seen in our outpatient clinic on Sunday, placed on doxycycline for community-acquired bronchitis but failed to improve. In the emergency department she was found to have rapid A. fib, significant hypoxia, was placed on BiPAP. CTA of chest was unremarkable for pulmonary embolus but showed significant infiltrates consistent with edema versus pneumonia, Covid testing was positive, and BNP levels were extremely high. She was placed on BiPAP, and steroids for her COVID-19 pneumonitis. She was admitted to floor with BiPAP, I asked the ER physician to use low-dose IV fluids overnight to help equilibrate volume status and follow her clinically this morning. This morning she states she feels better, labs, x-rays and previous records reviewed. [facility] History I have reviewed the patient's past medical history: Yes Medical History: Reports:: Congestive Heart Failure, Coronary Artery Disease, Hyperlipidemia, Hypertension, Internal Pacemaker Denies:: Cancer, Diabetes Mellitus Type 1, Diabetes Mellitus Type 2, MRSA *Have you ever received a pneumonia vaccine?: No *Have you received a flu vaccine this season?: No Other Surgeries: Yes: CABG, Cardiac Catheterization, Coronary Stent, Hysterectomy-Total, Pacemaker Amputation: No Fractures: No - *Social History Smoking Status: Never smoker Alcohol Intake: never Substance Use Type: denies use *Occupational Status:: retired Housing: house Household Members: family *Travel in the last 8 weeks: None Family Hx:: Coronary Artery Disease, Hyperlipidemia, Hypertension Review of Systems - Review of Systems Review of systems:: pertinent systems reviewed and negative unless documented below Meds Home Medications Medication Instructions Recorded Confirmed Type clopidogrel 75 mg tablet 75 mg PO DAILY tab 01/05/20 06/08/21 History furosemide 40 mg tablet 40 mg PO DAILY tab 01/05/20 06/09/21 History metolazone 2.5 mg tablet 2.5 mg PO MOTH tab 01/05/20 06/09/21 History potassium chloride 10 mEq 20 meq PO BID tab 01/05/20 06/08/21 History tablet,extended release ropinirole 3 mg tablet 3 mg PO HS tab 01/05/20 06/09/21 History Doxycycline Hyclate [Doxycycline 100 mg PO BID 06/08/21 06/08/21 History Hyclate 100mg Tablet] Ondansetron [Zofran 4mg ODT] 4 mg SL Q8HP PRN 06/09/21 06/09/21 History Allergies Allergy/AdvReac Type Severity Reaction Status Date / Time No Known Allergies Allergy Verified 01/31/21 09:37 Exam Vital signs and Labs for Last 24 Hours: Temp Pulse Resp BP Pulse Ox 98.2 F 70 19 103/67 L 97 06/09/21 04:00 06/09/21 04:00 06/09/21 04:00 06/09/21 04:00 06/09/21 04:00 Laboratory Results - last 24 hr 06/08/21 16:09: Specimen Source Right brachial, O2 % 5l, ABG pH 7.45, ABG pCO2 30.6 L, ABG pO2 65.1 L, ABG HCO3 20.9 L, ABG Total CO2 21.9 L, ABG O2 Saturation 93, ABG Base Excess -3.0 L, Florencio Test Non applicable 06/08/21 16:20: Lactate 2.9 H 06/08/21 16:20: Chlamy pneumoniae PCR Not detected, Adenovirus (PCR) Not detected, B. pertussis DNA (PCR) Not detected, Coronavirus OC43 (PCR) Not detected, Coronavirus HKU1 (PCR) Not detected, Coronavirus 229E (PCR) Not detected, Coronavirus NL63 (PCR) Not detected, Human Metapneumovir PCR Not detected, Influenza A (H1) PCR Not detected, Influ A (H1N1/09) PCR Not detected, Influenza A (H3) PCR Not detected, Influenza Type A (PCR) Not detected, Influenza Type B (PCR) Not detected, M. pneumoniae (PCR) Not detected, Parainfluenza 1 (PCR) Not detected, Parainfluenza 2 (PCR) Not detected, Parainfluenza 3 (PCR) Not detected, Parainfluenza 4 (PCR) Not detected, RSV (PCR) Not detected, Entero/
--- NOTE | 2021-06-09 09:32 | HMH.PHAINT ---
Home med rec complete
--- NOTE | 2021-06-09 10:47 | ECG_ITS ---
APPROVED REPORT Exam: Resting ECG HR:79 bpm ECG Measurements Heart Rate 79 AXES KS 247 P 72 QRSd 145 QRS -73 QT 436 T 132 QTc 471 Conclusion SINUS RHYTHM WITH FIRST DEGREE AV BLOCK WITH OCCASIONAL VENTRICULAR PREMATURE COMPLEXES RIGHT BUNDLE BRANCH BLOCK [120+ ms QRS DURATION, UPRIGHT V1, 40+ ms S IN I/aVL/V4/V5/V6] INFERIOR MYOCARDIAL INFARCTION , PROBABLY OLD [40+ ms Q WAVE AND/OR ST/T ABNORMALITY IN II/aVF] ANTEROLATERAL MYOCARDIAL INFARCTION , OF INDETERMINATE AGE [40+ ms Q WAVE IN I/aVL/V3-V6] ABNORMAL ECG UNCONFIRMED REPORT Electronically signed by : Zia Jimenez MD 06/10/2021 19:23:56
--- NOTE | 2021-06-09 10:53 | HMH.CNCARD ---
History of Present Illness Consult date: 06/09/21 Requesting physician: Zia Jimenez Consult reason: congestive heart failure Chief complaint: CHF Additional Medical History:: 1. CAD A. 2 vessel CABG, 06/2014 B. NSTEMI, 07/2014 C. KYLER to ostial left main extending into the unbypassed circumflex. Plain angioplasty to distal circumflex, 3 KYLER to RCA. 08/07/2014. 2. Severe cardiomyopathy, EF 15-20%, 07/2014 A. AICD placed for symptomatic bradycardia, 08/25/2014. 3. Systolic CHF A. Echo, 02/2021, EF 20-30% with biatrial enlargement, RVSP 51 mm Hg. 4. abnormal EKG with RBBB and LAFB 5. Paroxysmal A. fib in setting of hypoxia, 05/2021 6. Hypertension 7. Hyperlipidemia 8. DNR 9. REcent COVID infection, 05/2021 History of present illness: 86-year-old white female who is diagnosed with end-stage CHF with significantly depressed ejection fraction, has pacemaker in place, who came to the emergency department with cough, shortness of air and decreased oxygen saturation. She had been seen in our outpatient clinic on Sunday, placed on doxycycline for community-acquired bronchitis but failed to improve. In the emergency department she was found to have rapid A. fib, significant hypoxia, was placed on BiPAP. CTA of chest was unremarkable for pulmonary embolus but showed significant infiltrates consistent with edema versus pneumonia, Covid testing was positive, and BNP levels were extremely high. She was placed on BiPAP, and steroids for her COVID-19 pneumonitis. She was admitted to floor with BiPAP, I asked the ER physician to use low-dose IV fluids overnight to help equilibrate volume status and follow her clinically this morning. This morning she states she feels better, labs, x-rays and previous records reviewed. The above per Dr. Jimenez Unable to obtain significant history from the patient due to hypoxemia with attempts to talk while on BiPAP therapy. Patient denies any chest pain, pressure or tightness at this time. [facility] History Medical History: Reports:: Congestive Heart Failure, Coronary Artery Disease, Hyperlipidemia, Hypertension, Internal Pacemaker Denies:: Cancer, Diabetes Mellitus Type 1, Diabetes Mellitus Type 2, MRSA *Have you ever received a pneumonia vaccine?: No *Have you received a flu vaccine this season?: No Other Surgeries: Yes: CABG, Cardiac Catheterization, Coronary Stent, Hysterectomy-Total, Pacemaker Amputation: No Fractures: No - *Social History Smoking Status: Never smoker Alcohol Intake: never Substance Use Type: denies use *Occupational Status:: retired Housing: house Household Members: family *Travel in the last 8 weeks: None Family Hx:: Coronary Artery Disease, Hyperlipidemia, Hypertension Meds Home Medications Medication Instructions Recorded Confirmed Type clopidogrel 75 mg tablet 75 mg PO DAILY tab 01/05/20 06/08/21 History furosemide 40 mg tablet 40 mg PO DAILY tab 01/05/20 06/09/21 History metolazone 2.5 mg tablet 2.5 mg PO MOTH tab 01/05/20 06/09/21 History potassium chloride 10 mEq 20 meq PO BID tab 01/05/20 06/08/21 History tablet,extended release ropinirole 3 mg tablet 3 mg PO HS tab 01/05/20 06/09/21 History Doxycycline Hyclate [Doxycycline 100 mg PO BID 06/08/21 06/08/21 History Hyclate 100mg Tablet] Ondansetron [Zofran 4mg ODT] 4 mg SL Q8HP PRN 06/09/21 06/09/21 History Allergies Allergy/AdvReac Type Severity Reaction Status Date / Time No Known Allergies Allergy Verified 01/31/21 09:37 Exam Vital signs and Labs for Last 24 Hours: Temp Pulse Resp BP Pulse Ox 98.2 F 70 19 103/67 L 97 06/09/21 04:00 06/09/21 04:00 06/09/21 04:00 06/09/21 04:00 06/09/21 04:00 Laboratory Results - last 24 hr 06/08/21 16:09: Specimen Source Right brachial, O2 % 5l, ABG pH 7.45, ABG pCO2 30.6 L, ABG pO2 65.1 L, ABG HCO3 20.9 L, ABG Total CO2 21.9 L, ABG O2 Saturation 93, ABG Base Excess -3.0 L, Florencio Test Non applicable 06/08/21 16:20: La
--- NOTE | 2021-06-09 15:43 | PC.NURSE ---
Pt is mostly alert and oriented, some occasional periods of confusion noted. She remains on bipap with O2 saturations ranging from the mid 80's to upper 90's. Shes been paced on telemetry. No complaints voiced thus far. Family has been updated on pt condition and poc. Call light within reach, bed locked and in lowest position.
[2021-06-09 16:54] LABS: Chloride 96 mmol/L (98-107); Potassium 4.6 mmoL/L (3.5-5.1); Sodium 131 mmol/L (136-145)
[2021-06-09 16:57] LABS: Anion Gap 14.6 mEq/L (5-15); Blood Urea Nitrogen 65 mg/dl (7-17); Calcium 8.9 mg/dl (8.4-10.2); Carbon Dioxide 25 mmol/L (22.0-30.0); Creatinine Clearance Estimated 23 mL/min (50-200); Estimated Glomerular Filt Rate 28 ml/min (>60); GFR (African American) 34 ML/MIN (>60); Glucose 168 mg/dl (74-100)
--- NOTE | 2021-06-09 19:06 | CA_ITS ---
APPROVED REPORT EXAM: Comprehensive 2D, Doppler, and color-flow Echocardiogram Glass Edger: NADIRA Singh, RVS Ht: 4 ft 11 in Wt: 136lbs BSA: 1.57 BP: 000/00 mmHg Indications: Covid+, CHF, Afib, CM last ef=20-30%, CAD, CABG,Stent M-Mode Dimensions RVDd 2.02 cm (0.9-2.6) LA Diam 5.62 cm (1.9-4.0) LVDd 6.91 cm (3.5-5.7) Ao Diam 2.81 cm (2.0-3.7) LVDs 6.07 cm (3.5-5.7) IVSd 0.89 cm (0.6-1.1) PWd 0.89 cm (0.6-1.1) EF (Teich) 11.70% EPSs 1.83 cm FS 5.30% EDV (Teich) 209.30 mL ESV (Teich) 184.80 mL Conclusion 1. Limited echocardiogram was performed to determine left ventricular systolic function. 2. Left atrium is moderately enlarged, left ventricle is mildly dilated, severe reduced left ventricular systolic function, visually estimated ejection fraction 20% left ventricle is globally hypokinetic. 3. Mildly enlarged right ventricle with mild reduced contractility. There is an AICD lead seen in the right ventricle. 4. No significant pericardial effusion 5. There is left-sided pleural effusion seen. Electronically signed by : Guido Yu MD 06/10/2021 14:25:38
[2021-06-10] VITALS (14 sets, daily range): BP systolic 80–123; BP diastolic 37–89; PULSE 80–130; RESP 20–33; TEMP 36.4–37.3; O2SAT 90–95; BMI 26.2
--- NOTE | 2021-06-10 05:20 | PC.NURSE ---
No acute changes. Pt has remained on O2 NC t/o shift ranging 4-4.5L. Pt desats at times, but recovers quickly. Lungs noted to have crackles to bases. Pt has not c/o any discomfort or soa. Pt has been tachycardic at times. Currently paced on telemetry. She remains on milrinone infusion @ 2.3 ml/hr. Pt incontinent of urine. Purewick is in place. Will continue to monitor.
--- NOTE | 2021-06-10 07:12 | HMH.ACPN2 ---
Internal Medicine - PN: Subj *Date: 06/10/21 *Time: 08:30 Interval history: Eating breakfast on exam. Afebrile. Remains tachycardic. Cooperative on exam this morning. Complains of shortness of breath and fatigue. Denies nausea or diarrhea. Exam Vital signs and Labs for Last 24 Hours: Temp Pulse Resp BP Pulse Ox 97.6 F 113 H 20 123/89 92 L 06/10/21 04:00 06/10/21 04:00 06/10/21 02:00 06/10/21 04:00 06/10/21 04:00 Laboratory Results - last 24 hr 06/09/21 16:10: Sodium 131 L, Potassium 4.6, Chloride 96 L, Carbon Dioxide 25, Anion Gap 14.6, BUN 65 H, Creatinine 1.70 H, Estimated Creat Clear 23, Estimated GFR 28 L, Est GFR ( Amer) 34 L, Glucose 168 H, Calcium 8.9 I & O for Last 24 hours: Intake & Output 06/07/21 06/08/21 06/09/21 06/10/21 23:59 23:59 23:59 23:59 Output Total 0 / 0 600 / 600 Balance 0 / 0 -600 / -600 Weight 61.87 kg 61.87 kg 60.736 kg Narrative: - Constitutional mild distress, thin, chronically ill appearing - *Routine HEENT Exam Head: Present: normocephalic Eye: Present: EOMI, PERRL ENT: Present: mucous membranes moist - *Routine Neck Exam Present: supple. Absent: lymphadenopathy - *Routine Respiratory Exam Present: rales, diminished in bilateral bases. - *Routine Cardiovascular Exam Present: irregular rhythm, tachycardic - *Routine Abdominal Exam Present: soft, normoactive bowel sounds. Absent: tenderness - *Routine Extremities Exam Absent: cyanosis, clubbing, edema - *Routine Skin Exam Present: warm. Absent: rash - *Routine Neurological Exam Present: alert, oriented X3, Globally weak, able to move all extremities. Cranial nerves appear intact Assessment and Plan (1) Pneumonia due to COVID-19 virus Status: Acute Category: Medical Code(s): U07.1 - COVID-19; J12.82 - Pneumonia due to coronavirus disease 2019 (2) Acute on chronic systolic CHF (congestive heart failure), NYHA class 4 Status: Acute Category: Medical Code(s): I50.23 - Acute on chronic systolic (congestive) heart failure (3) Rapid atrial fibrillation Status: Acute Category: Medical Code(s): I48.91 - Unspecified atrial fibrillation (4) Community acquired pneumonia Status: Acute Category: Medical Code(s): J18.9 - Pneumonia, unspecified organism (5) Chronic kidney disease (CKD) stage G3a/A2, moderately decreased glomerular filtration rate (GFR) between 45-59 mL/min/1.73 square meter and albuminuria creatinine ratio between 30-299 mg/g Status: Acute Category: Medical Code(s): N18.31 - Chronic kidney disease, stage 3a (6) Chronic systolic (congestive) heart failure Status: Chronic Category: Medical Code(s): I50.22 - Chronic systolic (congestive) heart failure (7) Ischemic cardiomyopathy Status: Chronic Category: Medical Code(s): I25.5 - Ischemic cardiomyopathy - Assessment and plan all Dx Assessment and Plan for all problems:: 86-year-old female with significant frailty and comorbidities. Severe cardiomyopathy. COVID-19 pneumonia. Problems addressed as follows: COVID-19 pneumonia - Continue ceftriaxone, azithromycin, dexamethasone. Will not initiate remdesivir in the setting of GFR <30; if renal function improves will consider initiating - Supplemental O2 with goal sats > 92% - lovenox prophy Cardiomyopathy/CHF AoC Systolic CHF A fib - prelim echo report shows extremely depressed ejection fraction. ~10-15% - She follows with cardiology clinic here. Cards consulted, appreciate recs - On milrinone drip. Increase today per cardiology. Initiated Entresto for CHF.. - Continue V diuretics - ICD in situ. Will evaluate for possible upgrade to BiV ICD after acute CHF treated. - Paroxysmal atrial fibrillation, currently in sinus rhythm. Elevated [id number] score but due to history of falls patient has not been on anticoagulation. Chronic kidney disease, stage III - caution with nephrotoxics - at baseline function Cardiac diet Poor p
[2021-06-10 07:15] LABS: Basophils % 0.3 % (0.1-2.0); Eosinophils % 0.8 % (0.1-12.0); Hematocrit 46.2 % (37.0-47.0); Hemoglobin 15.3 g/dL (12.2-16.2); Lymphocytes # 0.3 K/mm3 (0.7-4.5); Lymphocytes % 5.6 % (10-50); Mean Corpuscular HGB Conc 33.1 g/dL (31.8-35.4); Mean Corpuscular Hemoglobin 32.5 pg (27.0-31.2); Mean Corpuscular Volume 98.2 fl (81-99); Mean Platelet Volume 9.1 fl (7.4-10.4); Monocytes # 0.2 K/mm3 (0.1-1.0); Monocytes % 4.3 % (1.7-9.3); Neutrophils # 4.6 K/mm3 (1.8-7.8); Platelet Count 134 K/mm3 (142-424); Red Cell Distribution Width 13.1 % (11.5-17.5); White Blood Count 5.2 K/mm3 (4.8-10.8)
[2021-06-10 07:16] LABS: Chloride 98 mmol/L (98-107); Sodium 132 mmol/L (136-145)
[2021-06-10 07:17] LABS: Potassium 4.3 mmoL/L (3.5-5.1)
[2021-06-10 07:18] LABS: MANUAL DIFFERENTIAL MANUAL DIFFERENTIAL (MANUAL DIFF)
[2021-06-10 07:19] LABS: Blood Urea Nitrogen 73 mg/dl (7-17); Creatinine Clearance Estimated 20 mL/min (50-200); Estimated Glomerular Filt Rate 25 ml/min (>60); GFR (African American) 30 ML/MIN (>60)
[2021-06-10 07:20] LABS: Anion Gap 16.3 mEq/L (5-15); Calcium 8.9 mg/dl (8.4-10.2); Carbon Dioxide 22 mmol/L (22.0-30.0); Glucose 138 mg/dl (74-100)
[2021-06-10 08:20] LABS: Lymphocytes % 3 % (10-50); Monocytes % 9 % (2-9); Neutrophils % 88 % (42-76); Platelet Estimate Normal; Total Cells Counted 100
--- NOTE | 2021-06-10 11:14 | HMH.PNCARD ---
Subjective Date: 06/10/21 Time: 14:15 Principal diagnosis: Severe Cardiomyopathy, CHF Interval history: 86-year-old white female in bed in no acute distress. On oxygen by nasal cannula. She remains on IV milrinone with IV Lasix. Systolic blood pressure is 90 to 110 mmHg with heart rate in the 120 bpm range. She denies any chest pain, pressure or tightness. She did not appear to be short of breath. Minimal urine output since starting IV milrinone and IV Lasix. Exam Vital signs and Labs for Last 24 Hours: Temp Pulse Resp BP Pulse Ox 97.9 F 124 H 24 95/45 L 90 L 06/10/21 08:00 06/10/21 10:00 06/10/21 10:00 06/10/21 10:00 06/10/21 10:00 Laboratory Results - last 24 hr 06/09/21 16:10: Sodium 131 L, Potassium 4.6, Chloride 96 L, Carbon Dioxide 25, Anion Gap 14.6, BUN 65 H, Creatinine 1.70 H, Estimated Creat Clear 23, Estimated GFR 28 L, Est GFR ( Amer) 34 L, Glucose 168 H, Calcium 8.9 06/10/21 06:55: WBC 5.2 D, RBC 4.70, Hgb 15.3, Hct 46.2, MCV 98.2, MCH 32.5 H, MCHC 33.1, RDW 13.1, Plt Count 134 L D, MPV 9.1, Neut % (Auto) 89.0 H, Lymph % (Auto) 5.6 L, [place] % (Auto) 4.3, Eos % (Auto) 0.8, Baso % (Auto) 0.3, Neut # (Auto) 4.6, Lymph # (Auto) 0.3 L, [place] # (Auto) 0.2, Eos # (Auto) 0.0, Baso # (Auto) 0.0, Total Counted 100, Neutrophils % (Manual) 88 H, Lymphocytes % (Manual) 3 L, Monocytes % (Manual) 9, Platelet Estimate Normal 06/10/21 06:55: Sodium 132 L, Potassium 4.3, Chloride 98, Carbon Dioxide 22, Anion Gap 16.3 H, BUN 73 H, Creatinine 1.90 H, Estimated Creat Clear 20, Estimated GFR 25 L, Est GFR ( Amer) 30 L, Glucose 138 H, Calcium 8.9 I & O for Last 24 hours: Intake & Output 06/07/21 06/08/21 06/09/21 06/10/21 11:59 11:59 11:59 11:59 Intake Total 240 / 240 Output Total 0 / 0 600 / 600 Balance 0 / 0 -360 / -360 Weight 136 lb 6.4 oz 133 lb 14.4 oz - *Routine Respiratory Exam Present: rhonchi, crackles, diminished air movement - *Routine Cardiovascular Exam Present: tachycardia - *Routine Extremities Exam Absent: cyanosis, clubbing, edema Progress Note: A&P (1) Pneumonia due to COVID-19 virus Status: Acute (2) Acute on chronic systolic CHF (congestive heart failure), NYHA class 4 Status: Acute (3) Rapid atrial fibrillation Status: Acute (4) Community acquired pneumonia Status: Acute (5) Chronic kidney disease (CKD) stage G3a/A2, moderately decreased glomerular filtration rate (GFR) between 45-59 mL/min/1.73 square meter and albuminuria creatinine ratio between 30-299 mg/g Status: Acute (6) Chronic systolic (congestive) heart failure Status: Chronic (7) Ischemic cardiomyopathy Status: Chronic Assessment and Plan for All Diagnoses:: 1. Acute on chronic congestive heart failure with further reduction in ejection fraction likely related to newly diagnosed Covid infection. Ejection fraction is estimated about 10-15% compared to the 20-30% EF on echo from 02/2021. Continue IV diuretics And IV milrinone. 2. Acute respiratory failure secondary to combination of Covid infection/pneumonia and acute on chronic congestive heart failure. Off BiPAP, now on nasal cannula oxygen. 3. ICD in situ. Will evaluate for possible upgrade to BiV ICD after acute CHF treated. 4. Paroxysmal atrial fibrillation, currently in sinus rhythm. Elevated [id number] score but due to history of falls patient has not been on anticoagulation. 5. Chronic kidney disease, stage III 6. Pneumonia likely related to Covid infection Poor prognosis. Will discuss with Dr. Nicole
--- NOTE | 2021-06-10 14:59 | PC.NURSE ---
Patient resting comfortably in bed at this time, denies any cp or soa, purwick in place, low urine output despite milrinone and lasix, remains on 4LNC, HR 115-140 this shift, HR increases with only minimal exertion, frequent PVCs noted, cardiology aware, new order to start entresto this shift, alert and oriented, lung sounds with scattered fine crackles, abd soft and nontender, appetite fair, no acute s/s of distress noted.
[2021-06-11] VITALS (14 sets, daily range): BP systolic 87–140; BP diastolic 35–68; PULSE 100–139; RESP 22–47; TEMP 36.3–36.8; O2SAT 80–92; BMI 27.3
--- NOTE | 2021-06-11 01:13 | PC.NURSE ---
pt's oxygen saturation low 80's, upon entering room thought sat probe not picking up correctly so changed sat probe, still low 80's; increased oxygen from 4LNC to 6LNC and sats came up to 84%-86%, notified RT of pt's oxygen status, RT coming to bedside
--- NOTE | 2021-06-11 01:20 | PC.NURSE ---
RT placed pt on high flow nasal cannula and non-rebreather, pt's oxygen saturations back into 90's
[2021-06-11 05:45] LABS: Basophils % 0.2 % (0.1-2.0); Eosinophils # 0.1 K/mm3 (0.0-0.4); Eosinophils % 1.9 % (0.1-12.0); Hematocrit 41.5 % (37.0-47.0); Lymphocytes # 0.2 K/mm3 (0.7-4.5); Lymphocytes % 2.6 % (10-50); Mean Corpuscular HGB Conc 32.8 g/dL (31.8-35.4); Mean Corpuscular Volume 97.6 fl (81-99); Mean Platelet Volume 8.9 fl (7.4-10.4); Monocytes # 0.3 K/mm3 (0.1-1.0); Monocytes % 5.1 % (1.7-9.3); Neutrophils # 5.5 K/mm3 (1.8-7.8); Neutrophils % 90.3 % (37.0-80.0); Platelet Count 127 K/mm3 (142-424); Red Blood Count 4.25 M/mm3 (4.20-5.40); Red Cell Distribution Width 13.1 % (11.5-17.5); White Blood Count 6.1 K/mm3 (4.8-10.8)
[2021-06-11 05:52] LABS: Hemoglobin 13.6 g/dL (12.2-16.2)
[2021-06-11 05:53] LABS: MANUAL DIFFERENTIAL MANUAL DIFFERENTIAL (MANUAL DIFF)
[2021-06-11 06:29] LABS: Lymphocytes % 9 % (10-50); Neutrophils % 84 % (42-76); Platelet Estimate Normal; RBC Morphology Normal; Total Cells Counted 100
--- NOTE | 2021-06-11 07:31 | HMH.ACPN2 ---
Internal Medicine - PN: Subj *Date: 06/11/21 *Time: 09:28 Interval history: mood is pleasant this morning but in more respiratory distress. Blood pressure acceptable. Still on milrinone drip, increased yesterday by cardiology. Remains afebrile. Saturations in the low 90s on combination of 15 L high flow nasal cannula and nonrebreather. Alert and oriented to person. Appears more frail today. Labs reviewed, significant worsening in kidney function today. Stable cell lines. Discussion with patient's daughter about her clinical change. Informed her that it would be good for her and her sister to come visit as I have strong concern about Ms. Medellin's prognosis over the weekend. Ms. Medellin clarified on rounds that she does not want life support nor to be put on a machine to breathe nor chest compressions if her heart stops. Discussed CODE STATUS with daughter. She concurs. Exam Vital signs and Labs for Last 24 Hours: Temp Pulse Resp BP Pulse Ox 97.9 F 115 H 28 H 93/45 L 90 L 06/11/21 04:00 06/11/21 06:00 06/11/21 06:00 06/11/21 06:00 06/11/21 06:00 Laboratory Results - last 24 hr 06/10/21 06:55: Total Counted 100, Neutrophils % (Manual) 88 H, Lymphocytes % (Manual) 3 L, Monocytes % (Manual) 9, Platelet Estimate Normal 06/11/21 05:35: WBC 6.1, RBC 4.25, Hgb 13.6 D, Hct 41.5, MCV 97.6, MCH 32.0 H, MCHC 32.8, RDW 13.1, Plt Count 127 L, MPV 8.9, Neut % (Auto) 90.3 H, Lymph % (Auto) 2.6 L, [place] % (Auto) 5.1, Eos % (Auto) 1.9, Baso % (Auto) 0.2, Neut # (Auto) 5.5, Lymph # (Auto) 0.2 L, [place] # (Auto) 0.3, Eos # (Auto) 0.1, Baso # (Auto) 0.0, Total Counted 100, Neutrophils % (Manual) 84 H, Band Neutrophils % 7.0, Lymphocytes % (Manual) 9 L, Platelet Estimate Normal, RBC Morphology Normal I & O for Last 24 hours: Intake & Output 06/08/21 06/09/21 06/10/21 06/11/21 23:59 23:59 23:59 23:59 Intake Total 1434 / 1434 Output Total 0 / 0 850 / 850 Balance 0 / 0 584 / 584 Weight 61.87 kg 61.87 kg 60.736 kg 61.5 kg Microbiology Reports for the Last 24 Hours: Microbiology 06/08/21 16:20 Blood Blood Culture - Preliminary NO GROWTH AFTER 48 HOURS 06/08/21 16:20 Blood Blood Culture - Preliminary NO GROWTH AFTER 48 HOURS Narrative: - Constitutional Worsening respiratory distress overnight. On 15 L high flow and nonrebreather. thin, chronically ill appearing - *Routine HEENT Exam Head: Present: normocephalic Eye: Present: EOMI, PERRL ENT: Present: mucous membranes moist - *Routine Neck Exam Present: supple. Absent: lymphadenopathy - *Routine Respiratory Exam Present: Diffuse crackles in left lung field, faint in right lung field. Poor air movement bilaterally - *Routine Cardiovascular Exam Present: irregular rhythm, tachycardic - *Routine Abdominal Exam Present: soft, normoactive bowel sounds. Absent: tenderness - *Routine Extremities Exam Cool feet with prominent varicosities, no ana cyanosis; no clubbing, edema, - *Routine Skin Exam Present: warm. Absent: rash - *Routine Neurological Exam Present: alert, oriented X3, Globally weak, able to move all extremities. Cranial nerves appear intact Assessment and Plan (1) Pneumonia due to COVID-19 virus Status: Acute Category: Medical Code(s): U07.1 - COVID-19; J12.82 - Pneumonia due to coronavirus disease 2019 (2) Acute on chronic kidney failure Status: Acute Category: Medical Code(s): N17.9 - Acute kidney failure, unspecified; N18.9 - Chronic kidney disease, unspecified (3) Acute on chronic systolic CHF (congestive heart failure), NYHA class 4 Status: Acute Category: Medical Code(s): I50.23 - Acute on chronic systolic (congestive) heart failure (4) Rapid atrial fibrillation Status: Acute Category: Medical Code(s): I48.91 - Unspecified atrial fibrillation (5) Community acquired pneumonia Status: Acute Category: Medical Code(s): J18.9 -
[2021-06-11 07:43] LABS: Chloride 94 mmol/L (98-107); Sodium 127 mmol/L (136-145)
[2021-06-11 07:44] LABS: Potassium 4.5 mmoL/L (3.5-5.1)
[2021-06-11 07:46] LABS: Alanine Aminotransferase 25 U/L (12-78); Anion Gap 15.5 mEq/L (5-15); Aspartate Amino Transferase 67 U/L (14-36); Carbon Dioxide 22 mmol/L (22.0-30.0); Creatinine Clearance Estimated 12 mL/min (50-200); Estimated Glomerular Filt Rate 13 ml/min (>60); GFR (African American) 16 ML/MIN (>60)
[2021-06-11 07:47] LABS: Albumin Level 3.3 g/dl (3.5-5.0); Albumin/Globulin Ratio 1.3 (1.1-1.8); Alkaline Phosphatase 76 U/L (38-126); Bilirubin,Total 0.6 mg/dl (0.2-1.3); Calcium 8.4 mg/dl (8.4-10.2); Globulin 2.6 g/dL (1.3-3.2); Glucose 156 mg/dl (74-100); Magnesium 1.8 mg/dl (1.6-2.3); Total Protein,Serum 5.9 g/dl (6.3-8.2)
[2021-06-11 07:58] LABS: Blood Urea Nitrogen 91 mg/dl (7-17)
--- NOTE | 2021-06-11 07:58 | PC.NURSE ---
received call from Brandy in lab reporting BUN 91. Name and verified. Dr. Victor rounding at this time and has been updated.
--- NOTE | 2021-06-11 08:58 | PC.NURSE ---
Pt is A&O. Dr. Victor @ [facility]. Pt has requested to be changed to DNR status. Dr. Victor has spoken to daughter this morning by phone. DNR signed by pt and order entered.
--- NOTE | 2021-06-11 10:05 | PC.NURSE ---
Pt is allowed to have brief family visits, one at a time with proper PPE. N95 must be worn until exiting the building. Discussed with family who verbalized understanding.
--- NOTE | 2021-06-11 13:14 | PC.NURSE ---
RT (Mili Ruby) @ [facility] and placed pt on Bipap per Dr. Victor's order. Bipap mask placed on pt and she refused it immediately. 15L HFNC and NRB mask reapplied.
[2021-06-11 17:05] LABS: Anion Gap 16.7 mEq/L (5-15); Calcium 8.5 mg/dl (8.4-10.2); Carbon Dioxide 20 mmol/L (22.0-30.0); Chloride 98 mmol/L (98-107); Creatinine Clearance Estimated 10 mL/min (50-200); Estimated Glomerular Filt Rate 12 ml/min (>60); GFR (African American) 14 ML/MIN (>60); Glucose 191 mg/dl (74-100); Potassium 4.7 mmoL/L (3.5-5.1); Sodium 130 mmol/L (136-145)
[2021-06-11 17:11] LABS: Blood Urea Nitrogen 100 mg/dl (7-17)
--- NOTE | 2021-06-11 17:13 | PC.NURSE ---
received call from lab reporting BUN 100. Name and verified. Dr. Victor updated.
--- NOTE | 2021-06-11 19:24 | PC.NURSE ---
pt confused and pulled oxygen off and pulled out IV right AC, placed IVF to left AC IV, put oxygen back on pt and sats 88% with high flow nasal cannula and non-rebreather; placed mittens on pt for safety so won't pull off anything else
--- NOTE | 2021-06-11 20:20 | PC.NURSE ---
spoke with MD Valente giles about pt's sats in low 80's with non-rebreather and high-flow nasal cannula in place; instructed RN to place pt on bipap at 100%, placed pt on bipap and sats are 90% pt's IV in left AC became dislodged, removed from left AC; BENJAMIN RN from ED came and placed ultra sound guided 20G IV in right AC
[2021-06-12] VITALS (24 sets, daily range): BP systolic 86–143; BP diastolic 35–68; PULSE 78–148; RESP 14–40; TEMP 36.4–36.6; O2SAT 78–100; BMI 27.0
[2021-06-12 06:05] LABS: Basophils % 0.1 % (0.1-2.0); Eosinophils % 0.1 % (0.1-12.0); Hematocrit 42.5 % (37.0-47.0); Hemoglobin 13.7 g/dL (12.2-16.2); Lymphocytes # 0.2 K/mm3 (0.7-4.5); Lymphocytes % 1.8 % (10-50); Mean Corpuscular HGB Conc 32.2 g/dL (31.8-35.4); Mean Corpuscular Hemoglobin 32.1 pg (27.0-31.2); Mean Corpuscular Volume 99.4 fl (81-99); Mean Platelet Volume 8.9 fl (7.4-10.4); Monocytes # 0.6 K/mm3 (0.1-1.0); Monocytes % 6.3 % (1.7-9.3); Neutrophils % 91.6 % (37.0-80.0); Platelet Count 219 K/mm3 (142-424); Red Blood Count 4.27 M/mm3 (4.20-5.40); Red Cell Distribution Width 13.1 % (11.5-17.5); White Blood Count 9.8 K/mm3 (4.8-10.8)
[2021-06-12 06:06] LABS: MANUAL DIFFERENTIAL MANUAL DIFFERENTIAL (MANUAL DIFF)
[2021-06-12 06:14] LABS: Chloride 95 mmol/L (98-107); Potassium 4.7 mmoL/L (3.5-5.1); Sodium 128 mmol/L (136-145)
[2021-06-12 06:17] LABS: Alanine Aminotransferase 34 U/L (12-78); Albumin Level 3.6 g/dl (3.5-5.0); Albumin/Globulin Ratio 1.2 (1.1-1.8); Alkaline Phosphatase 98 U/L (38-126); Anion Gap 17.7 mEq/L (5-15); Aspartate Amino Transferase 94 U/L (14-36); Bilirubin,Total 0.7 mg/dl (0.2-1.3); Calcium 8.5 mg/dl (8.4-10.2); Carbon Dioxide 20 mmol/L (22.0-30.0); Creatinine Clearance Estimated 9 mL/min (50-200); Estimated Glomerular Filt Rate 10 ml/min (>60); GFR (African American) 12 ML/MIN (>60); Glucose 207 mg/dl (74-100); Magnesium 1.9 mg/dl (1.6-2.3); Total Protein,Serum 6.6 g/dl (6.3-8.2)
[2021-06-12 06:32] LABS: Blood Urea Nitrogen 110 mg/dl (7-17)
[2021-06-12 06:54] LABS: Lymphocytes % 2 % (10-50); Macrocytosis 1+; Neutrophils % 89 % (42-76); Platelet Estimate Normal; Total Cells Counted 100
--- NOTE | 2021-06-12 10:19 | HMH.ACPN2 ---
Internal Medicine - PN: Subj *Date: 06/12/21 *Time: 11:08 Interval history: Ms. Medellin is more agitated today. Showing increased respiratory distress. Saturations high 80s on nonrebreather and high flow nasal cannula. Blood pressure lower today when not agitated. Still on milrinone drip. Reviewed labs this morning. Kidney function worse today. Remains afebrile. Overall showing clinical decline. Family at bedside. Discussed medications for agitation. Discussed risks and benefits of medication such as opiates and anxiolytics. Family seems understanding. Suggested that they have family come visit that may want to see Ms. Medellin given her high risk of dying. Exam Vital signs and Labs for Last 24 Hours: Temp Pulse Resp BP Pulse Ox 97.8 F 138 H 34 H 98/58 L 89 L 06/12/21 07:44 06/12/21 09:00 06/12/21 06:00 06/12/21 09:00 06/12/21 09:00 Laboratory Results - last 24 hr 06/11/21 16:20: Sodium 130 L, Potassium 4.7, Chloride 98, Carbon Dioxide 20 L, Anion Gap 16.7 H, BUN 100 H, Creatinine 3.70 H, Estimated Creat Clear 10, Estimated GFR 12 L*, Est GFR ( Amer) 14 L*, Glucose 191 H D, Calcium 8.5 06/12/21 05:18: WBC 9.8 D, RBC 4.27, Hgb 13.7, Hct 42.5, MCV 99.4 H, MCH 32.1 H, MCHC 32.2, RDW 13.1, Plt Count 219 D, MPV 8.9, Neut % (Auto) 91.6 H, Lymph % (Auto) 1.8 L, [place] % (Auto) 6.3, Eos % (Auto) 0.1, Baso % (Auto) 0.1, Neut # (Auto) 9.0 H, Lymph # (Auto) 0.2 L, [place] # (Auto) 0.6, Eos # (Auto) 0.0, Baso # (Auto) 0.0, Total Counted 100, Neutrophils % (Manual) 89 H, Band Neutrophils % 9.0 H, Lymphocytes % (Manual) 2 L, Platelet Estimate Normal, Macrocytosis 1+ 06/12/21 05:18: Sodium 128 L, Potassium 4.7, Chloride 95 L, Carbon Dioxide 20 L, Anion Gap 17.7 H, BUN 110 H*, Creatinine 4.20 H, Estimated Creat Clear 9, Estimated GFR 10 L*, Est GFR ( Amer) 12 L*, Glucose 207 H, Calcium 8.5, Magnesium 1.9, Total Bilirubin 0.7, AST 94 H D, ALT 34 D, Alkaline Phosphatase 98, Total Protein 6.6, Albumin 3.6, Globulin 3.0, Albumin/Globulin Ratio 1.2 I & O for Last 24 hours: Intake & Output 06/09/21 06/10/21 06/11/21 06/12/21 23:59 23:59 23:59 23:59 Intake Total 1434 / 1434 843 / 843 Output Total 0 / 0 850 / 850 170 / 170 Balance 0 / 0 584 / 584 673 / 673 Weight 61.87 kg 60.736 kg 61.5 kg 60.9 kg Narrative: - Constitutional Worsening respiratory distress overnight. On 15 L high flow and nonrebreather. thin, chronically ill appearing, agitated - *Routine HEENT Exam Head: Present: normocephalic Eye: Present: EOMI, PERRL ENT: Present: mucous membranes moist - *Routine Neck Exam Present: supple. Absent: lymphadenopathy - *Routine Respiratory Exam Present: Diffuse crackles and wheeze bilaterally. Poor air movement bilaterally - *Routine Cardiovascular Exam Present: irregular rhythm, tachycardic - *Routine Abdominal Exam Present: soft, normoactive bowel sounds. Absent: tenderness - *Routine Extremities Exam Cool feet with prominent varicosities, no ana cyanosis; no clubbing, edema, - *Routine Skin Exam Present: warm. Absent: rash - *Routine Neurological Exam Present: alert, oriented X1, Globally weak, able to move all extremities. Cranial nerves appear intact Assessment and Plan (1) Pneumonia due to COVID-19 virus Status: Acute Category: Medical Code(s): U07.1 - COVID-19; J12.82 - Pneumonia due to coronavirus disease 2019 (2) Acute on chronic kidney failure Status: Acute Category: Medical Code(s): N17.9 - Acute kidney failure, unspecified; N18.9 - Chronic kidney disease, unspecified (3) Acute on chronic systolic CHF (congestive heart failure), NYHA class 4 Status: Acute Category: Medical Code(s): I50.23 - Acute on chronic systolic (congestive) heart failure (4) Rapid atrial fibrillation Status: Acute Category: Medical Code(s): I48.91 - Unspecified atrial fibrillation (5) Community acquired pneumonia Status: Acute Category: Medical Code(s): J18.9 - Pneum
--- NOTE | 2021-06-12 10:41 | XR_ITS ---
PROCEDURE INFORMATION: Exam: XR Chest Exam date and time: 06/12/2021 10:41 AM Age: 86 years old Clinical indication: Shortness of breath; Additional info: Increased respiratory distress TECHNIQUE: Imaging protocol: XR of the chest. Views: 1 view. COMPARISON: CR XR CHEST PORTABLE 06/08/2021 5:11 PM FINDINGS: Tubes, catheters and devices: AICD. Lungs: Worsening right-sided airspace disease, disproportionately upper lobe in distribution. Pleural spaces: Questionable left pleural effusion. Heart/Mediastinum: Cardiomegaly and mediastinal widening, with rightward displacement of the trachea. Diaphragm: Asymmetric elevation of the right hemidiaphragm. Bones/joints: Median sternotomy. Osteopenia and degenerative change. IMPRESSION: 1. Worsening right-sided airspace disease, disproportionately upper lobe in distribution. 2. Additional findings as described above.
--- NOTE | 2021-06-12 15:03 | HMH.ACPN ---
Internal Medicine - PN: Subj *Date: 06/12/21 *Time: 15:03 Exam Vital signs and Labs for Last 24 Hours: Temp Pulse Resp BP Pulse Ox 97.9 F 133 H 30 H 87/45 L 80 L 06/12/21 11:11 06/12/21 14:00 06/12/21 14:00 06/12/21 14:00 06/12/21 14:00 Laboratory Results - last 24 hr 06/11/21 16:20: Sodium 130 L, Potassium 4.7, Chloride 98, Carbon Dioxide 20 L, Anion Gap 16.7 H, BUN 100 H, Creatinine 3.70 H, Estimated Creat Clear 10, Estimated GFR 12 L*, Est GFR ( Amer) 14 L*, Glucose 191 H D, Calcium 8.5 06/12/21 05:18: WBC 9.8 D, RBC 4.27, Hgb 13.7, Hct 42.5, MCV 99.4 H, MCH 32.1 H, MCHC 32.2, RDW 13.1, Plt Count 219 D, MPV 8.9, Neut % (Auto) 91.6 H, Lymph % (Auto) 1.8 L, [place] % (Auto) 6.3, Eos % (Auto) 0.1, Baso % (Auto) 0.1, Neut # (Auto) 9.0 H, Lymph # (Auto) 0.2 L, [place] # (Auto) 0.6, Eos # (Auto) 0.0, Baso # (Auto) 0.0, Total Counted 100, Neutrophils % (Manual) 89 H, Band Neutrophils % 9.0 H, Lymphocytes % (Manual) 2 L, Platelet Estimate Normal, Macrocytosis 1+ 06/12/21 05:18: Sodium 128 L, Potassium 4.7, Chloride 95 L, Carbon Dioxide 20 L, Anion Gap 17.7 H, BUN 110 H*, Creatinine 4.20 H, Estimated Creat Clear 9, Estimated GFR 10 L*, Est GFR ( Amer) 12 L*, Glucose 207 H, Calcium 8.5, Magnesium 1.9, Total Bilirubin 0.7, AST 94 H D, ALT 34 D, Alkaline Phosphatase 98, Total Protein 6.6, Albumin 3.6, Globulin 3.0, Albumin/Globulin Ratio 1.2 I & O for Last 24 hours: Intake & Output 06/09/21 06/10/21 06/11/21 06/12/21 23:59 23:59 23:59 23:59 Intake Total 1434 / 1434 843 / 843 Output Total 0 / 0 850 / 850 170 / 170 Balance 0 / 0 584 / 584 673 / 673 Weight 61.87 kg 60.736 kg 61.5 kg 60.9 kg Assessment and Plan (1) Pneumonia due to COVID-19 virus Status: Acute Category: Medical Code(s): U07.1 - COVID-19; J12.82 - Pneumonia due to coronavirus disease 2018 (2) Acute on chronic kidney failure Status: Acute Category: Medical Code(s): N17.9 - Acute kidney failure, unspecified; N18.9 - Chronic kidney disease, unspecified (3) Acute on chronic systolic CHF (congestive heart failure), NYHA class 4 Status: Acute Category: Medical Code(s): I50.23 - Acute on chronic systolic (congestive) heart failure (4) Rapid atrial fibrillation Status: Acute Category: Medical Code(s): I48.91 - Unspecified atrial fibrillation (5) Community acquired pneumonia Status: Acute Category: Medical Code(s): J18.9 - Pneumonia, unspecified organism (6) Chronic kidney disease (CKD) stage G3a/A2, moderately decreased glomerular filtration rate (GFR) between 45-59 mL/min/1.73 square meter and albuminuria creatinine ratio between 30-299 mg/g Status: Acute Category: Medical Code(s): N18.31 - Chronic kidney disease, stage 3a (7) Chronic systolic (congestive) heart failure Status: Chronic Category: Medical Code(s): I50.22 - Chronic systolic (congestive) heart failure (8) Ischemic cardiomyopathy Status: Chronic Category: Medical Code(s): I25.5 - Ischemic cardiomyopathy The patient's infection will respond to the chosen ABx?: Yes Is the patient receiving the right drug, dose, and route?: Yes Could a more targeted ABx be ordered?: No (WBC WNL, COVID +, AFEBRILE.)
--- NOTE | 2021-06-12 16:27 | PC.NURSE ---
Pt has declined this shift. Resp status has worsened, sats have maintained in the 80's. BP stable, Milrinone still infusing. Dr. Victor notified of request for Ativan and Morphine, has helped with air hunger and restlessness. Dr. Nicole also updated this shift as well in RE to status, NNO. Family at bedside. Courtsey cart given.
--- NOTE | 2021-06-12 18:56 | PC.NURSE ---
Pt was placed bipap at 100% o2 RR 16.
[2021-06-13] VITALS (8 sets, daily range): BP systolic 77–117; BP diastolic 29–49; PULSE 115–144; RESP 16–28; TEMP 36.9; O2SAT 97–100; BMI 27.8
[2021-06-13 07:33] LABS: Basophils % 0.2 % (0.1-2.0); Eosinophils % 0.3 % (0.1-12.0); Hematocrit 37.7 % (37.0-47.0); Hemoglobin 12.5 g/dL (12.2-16.2); Lymphocytes # 0.1 K/mm3 (0.7-4.5); Lymphocytes % 1.6 % (10-50); Mean Corpuscular HGB Conc 33.2 g/dL (31.8-35.4); Mean Corpuscular Hemoglobin 32.6 pg (27.0-31.2); Mean Corpuscular Volume 98.2 fl (81-99); Mean Platelet Volume 8.8 fl (7.4-10.4); Monocytes # 0.4 K/mm3 (0.1-1.0); Monocytes % 4.1 % (1.7-9.3); Neutrophils # 8.1 K/mm3 (1.8-7.8); Neutrophils % 93.8 % (37.0-80.0); Platelet Count 141 K/mm3 (142-424); Red Blood Count 3.84 M/mm3 (4.20-5.40); Red Cell Distribution Width 13.2 % (11.5-17.5); White Blood Count 8.6 K/mm3 (4.8-10.8)
[2021-06-13 07:48] LABS: MANUAL DIFFERENTIAL MANUAL DIFFERENTIAL (MANUAL DIFF)
--- NOTE | 2021-06-13 07:49 | PC.NURSE ---
0630 dr blanc notified of patients b/p progressively decreasing through the night, notified of maps 43-65 and b/ps 70's/30's, tachy still with some slight ecg changes noted with pvc's, pt still on milrinone at 3.7ml/hr, pt requiring morphine and ativan as prescribed, note new orders to decrease milrinone drip to .12mcg/kg/min at this time repeated and verified.
[2021-06-13 07:53] LABS: Chloride 97 mmol/L (98-107); Sodium 129 mmol/L (136-145)
[2021-06-13 07:56] LABS: Alanine Aminotransferase 27 U/L (12-78); Albumin Level 2.8 g/dl (3.5-5.0); Alkaline Phosphatase 92 U/L (38-126); Aspartate Amino Transferase 80 U/L (14-36); Bilirubin,Total 0.4 mg/dl (0.2-1.3); Calcium 8.1 mg/dl (8.4-10.2); Carbon Dioxide 21 mmol/L (22.0-30.0); Creatinine Clearance Estimated 8 mL/min (50-200); Estimated Glomerular Filt Rate 8 ml/min (>60); GFR (African American) 9 ML/MIN (>60); Globulin 2.7 g/dL (1.3-3.2); Glucose 217 mg/dl (74-100); Total Protein,Serum 5.5 g/dl (6.3-8.2)
[2021-06-13 08:08] LABS: Blood Urea Nitrogen 115 mg/dl (7-17)
--- NOTE | 2021-06-13 08:39 | HMH.ACPN2 ---
Internal Medicine - PN: Subj *Date: 06/13/21 *Time: 08:39 Interval history: Patient has remained unresponsive and obtunded overnight. Does seem to be in some discomfort according to daughters and she moves her arms around and seems to be afflicted with some pain behaviors per daughters. Patient remains on BiPAP. Unresponsive to verbal or tactile stimuli. Exam Vital signs and Labs for Last 24 Hours: Temp Pulse Resp BP Pulse Ox 98.5 F 125 H 24 90/35 L 98 06/13/21 00:00 06/13/21 06:00 06/13/21 06:00 06/13/21 06:00 06/13/21 06:00 Laboratory Results - last 24 hr 06/13/21 07:07: WBC 8.6, RBC 3.84 L, Hgb 12.5, Hct 37.7, MCV 98.2, MCH 32.6 H, MCHC 33.2, RDW 13.2, Plt Count 141 L D, MPV 8.8, Neut % (Auto) 93.8 H, Lymph % (Auto) 1.6 L, [place] % (Auto) 4.1, Eos % (Auto) 0.3, Baso % (Auto) 0.2, Neut # (Auto) 8.1 H, Lymph # (Auto) 0.1 L, [place] # (Auto) 0.4, Eos # (Auto) 0.0, Baso # (Auto) 0.0 06/13/21 07:07: Sodium 129 L, Potassium 5.0, Chloride 97 L, Carbon Dioxide 21 L, Anion Gap 16.0 H, BUN 115 H*, Creatinine 5.20 H D, Estimated Creat Clear 8, Estimated GFR 8 L*, Est GFR ( Amer) 9 L* D, Glucose 217 H, Calcium 8.1 L, Magnesium 2.0, Total Bilirubin 0.4, AST 80 H, ALT 27, Alkaline Phosphatase 92, Total Protein 5.5 L, Albumin 2.8 L D, Globulin 2.7, Albumin/Globulin Ratio 1.0 L I & O for Last 24 hours: Intake & Output 06/10/21 06/11/21 06/12/21 06/13/21 11:59 11:59 11:59 11:59 Intake Total 240 / 240 1374 / 1374 693 / 693 0 / 0 Output Total 600 / 600 250 / 250 170 / 170 Balance -360 / -360 1124 / 1124 523 / 523 0 / 0 Weight 133 lb 14.4 oz 135 lb 9.349 oz 134 lb 4.184 oz 138 lb 0.15 oz Narrative: Obtunded. Gallop rhythm noted. Abdomen soft. Extremities are cool in her feet and hands. Pulses are intact. Lungs have rhonchi bilaterally. Assessment and Plan (1) Pneumonia due to COVID-19 virus Status: Acute Category: Medical Code(s): U07.1 - COVID-19; J12.82 - Pneumonia due to coronavirus disease 2018 (2) Acute on chronic kidney failure Status: Acute Category: Medical Code(s): N17.9 - Acute kidney failure, unspecified; N18.9 - Chronic kidney disease, unspecified (3) Acute on chronic systolic CHF (congestive heart failure), NYHA class 4 Status: Acute Category: Medical Code(s): I50.23 - Acute on chronic systolic (congestive) heart failure (4) Rapid atrial fibrillation Status: Acute Category: Medical Code(s): I48.91 - Unspecified atrial fibrillation (5) Community acquired pneumonia Status: Acute Category: Medical Code(s): J18.9 - Pneumonia, unspecified organism (6) Chronic kidney disease (CKD) stage G3a/A2, moderately decreased glomerular filtration rate (GFR) between 45-59 mL/min/1.73 square meter and albuminuria creatinine ratio between 30-299 mg/g Status: Acute Category: Medical Code(s): N18.31 - Chronic kidney disease, stage 3a (7) Chronic systolic (congestive) heart failure Status: Chronic Category: Medical Code(s): I50.22 - Chronic systolic (congestive) heart failure (8) Ischemic cardiomyopathy Status: Chronic Category: Medical Code(s): I25.5 - Ischemic cardiomyopathy - Assessment and plan all Dx Assessment and Plan for all problems:: End-stage cardiomyopathy. Patient has not responded to aggressive inotropic/chronotropic measures. End-of-life. Patient's family wishes comfort/palliative care which is appropriate in this situation. We have discontinued drips, morphine and Ativan for pain/comfort/end-of-life care as noted. We will discontinue BiPAP and use FreeFlow oxygen to minimize facial discomfort.
--- NOTE | 2021-06-13 08:59 | P.DN_ITS ---
Pronouncement Note - Date and Time of Date of : 06/13/21 Time of : 08:55 - Additional Data Confirmation of : no pulse, no respirations, no heart sounds Family: at bedside Attending/PCP notified?: Yes Attending physician: Zia Jimenez MD Was code activated?: No Autopsy requested?: No skeins yarn examiner notified?: No Organ bank notified?: Yes Advance directives: Yes
--- NOTE | 2021-06-13 09:00 | HMH.DEADDC ---
Discharge Sum: Prov - Provider Primary care physician: Vicki Grant APRN Visit Care Team Role Provider Type Vicki Grant APRN Primary Care Provider Nurse Practitioner Bari Nicole MD Other Providers Staff Physician FIGUEROA Fowler Other Providers Physician Superintendent Stations Migdalia Galindo APRN Other Providers Nurse Practitioner Beata Hollingsworth APRN Other Providers Nurse Practitioner Camilo Mayo MD Emergency Provider ER Physician Zia Jimenez MD Admit Provider Staff Physician Attending Provider Admitting clinician: Zia Jimenez Attending physician on admission: Dann Victor Consults: 06/09/21 08:54 Cardiology Consult [Consult to Cardiology] [CONS] Routine Consulting Provider: Cardiology Reason For Consult: f/u chf... patient is established in [facility] cards clinic Pronouncing clinician: Zia Jimenez Discharge Sum: Summary - Date and Time Date of admission: 06/08/21 20:19 Date of : 06/13/21 Time of : 08:55 - Hospital Course prior to Hospital Course Information: Patient was admitted from home with worsening congestion, cough, failure of outpatient therapy for acute bronchopneumonia. Found to have positive COVID-19 test, but did not exhibit typical symptoms of viral pneumonia. Unfortunately, her ejection fraction became rapidly compromised by the bronchopneumonia/viral pneumonitis/COVID-19, and her ejection fraction went to the 10 to 15% range. Initially aggressive therapy with milrinone and afterload reduction was ordered by cardiology, including Entresto therapy. Unfortunately this resulted in acute kidney injury, volume depletion and dramatic worsening of her kidney function. Given failure of patient to improve, her family wished her to be transitioned over to palliative care given her end-stage cardiomyopathy. Over the next 24 hours milrinone was stopped, BiPAP was changed over to FreeFlow oxygen for comfort and morphine was administered for air hunger and comfort issues. The patient from her disease process at 8:55 AM this morning. Family was at bedside. - Additional Data Confirmation of as documented by pronouncing clinician: no pulse, no respirations, no heart sounds Family: at bedside Attending/PCP notified?: Yes Attending physician: Zia Jimenez MD Was code activated?: No Autopsy requested?: No loan examiner notified?: No Organ bank notified?: Yes Advance directives: Yes Hospice patient?: No
--- NOTE | 2021-06-13 09:22 | PC.NURSE ---
THIS MORNING AT 0735 PT'S BP WAS 67/29. O2 SATURATION 82-85% ON BIPAP. PT WAS ASSESSED. VERY AGITATED AND UNABLE TO FOLLOW COMMANDS. DIMINISHED BREATH SOUNDS. DISCOLORATION NOTED TO BLE. UNABLE TO DO APPROPRIATE SKIN ASSESSMENT DUE TO PT BEING VERY UNCOMFORTABLE AT THE TIME. FAMILY WAS REQUESTING PAIN MEDICATION. FAMILY UNDERSTOOD THAT PT WAS CONTINUING TO DECLINE AND THEY STATED THEY FELT THE MOST IMPORTANT CHOICE FOR THEIR MOTHER WOULD BE TO KEEP HER COMFORTABLE. PCP NOTIFIED AND ALSO TALKED TO FAMILY. DECISION WAS MADE AT 0815 TO DC MILRINONE DRIP, REMOVE BIPAP AND DEACTIVATE DEFIBRILLATOR. RT NOTIFIED TO REMOVE BIPAP AND PUT PT ON VENT MASK. PT RECEIVED A DOSE OF ATIVAN AT 0831 FOR AGITATION. PT PASSED AND WAS PRONOUNCED AT 0855. [facility] CONTACTED.
[2021-06-13 10:33] LABS: Lymphocytes % 4 % (10-50); Monocytes % 3 % (2-9); Neutrophils % 93 % (42-76); Platelet Estimate Marked Decrease; Total Cells Counted 100
== END 2021-06-13 12:00 | disposition expired | DRG 177 ==
LOC: ER 17:57 → 2ND 19:34
PROVIDERS: Internal Medicine Adolescent Medicine; Admitting Provider Internal Medicine Adolescent Medicine; Emergency Provider Student in an Organized Health Care Education/Training Program; PCP Nurse Practitioner Family; Visit Provider Internal Medicine Adolescent Medicine
DX: U07.1 COVID-19 (principal); I50.23 Acute on chronic systolic (congestive) heart failure; Z66 Do not resuscitate; Z51.5 Encounter for palliative care; J96.01 Acute respiratory failure with hypoxia; J12.82 Pneumonia due to coronavirus disease 2019; N17.9 Acute kidney failure, unspecified; I13.0 Hypertensive heart and chronic kidney disease with heart failure and stage 1 through stage 4 chronic kidney disease, or unspecified chronic kidney disease; N18.31 Chronic kidney disease, stage 3a; Z95.1 Presence of aortocoronary bypass graft; Z95.5 Presence of coronary angioplasty implant and graft; I48.0 Paroxysmal atrial fibrillation; E78.5 Hyperlipidemia, unspecified; I25.2 Old myocardial infarction; I25.5 Ischemic cardiomyopathy; N18.30 Chronic kidney disease, stage 3 unspecified; I25.10 Atherosclerotic heart disease of native coronary artery without angina pectoris; Z95.0 Presence of cardiac pacemaker; Z87.891 Personal history of nicotine dependence
CPT/HCPCS: 36415; 71045; 71275; 74177; 80048; 80053; 82803; 83605; 83735; 83880; 84484; 85007; 85025; 87040; 87486; 87581; 87632; 87798; 93005; 93308; 94640; 94761; 96374; 99284; C9803; J0456; J0696; J2260; Q9967; U0003; U0005